=== PATIENT | female | born 1990 | race Caucasian/White ===

== ENCOUNTER 2016-06-01 17:34 | Emergency (ER) | payer SELFPAY ==
[~2016-06-01 17:34] MED LIST: CLIN300C86 PO; HYDR-971 PO; IBUP200T43 PO; SULF1TAB24 PO
[2016-06-01 18:24] LABS: BILIRUBIN,URINE NEG (NEG); CLARITY,URINE CLEAR; COLOR,URINE YELLOW; NITRITE,URINE NEG (NEG); UROBILINOGEN,URINE 0.2 mg/dL (0.2 mg/dL)
[2016-06-01 18:25] LABS: GLUCOSE,URINE NEG (NEG)
[2016-06-01 18:32] LABS: BACTERIA,URINE 0 /HPF (0-FEW); RBC,URINE OCC /HPF (0-2); SQUAMOUS EPITHELIAL CELL,UR MOD /LPF
[2016-06-01 18:47] LABS: BASO % 1 % (0-3); EOS # 0.1 x10^3/uL (0.0-0.7); EOS % 2 % (0-3); HEMATOCRIT 43.8 % (36.0-47.0); HEMOGLOBIN 14.2 g/dL (12.0-15.5); LYMPH # 1.8 x10^3/uL (1.0-4.8); LYMPH % 27 % (24-48); MEAN CORPUSCULAR HEMOGLOBIN 29 pg (25-35); MEAN CORPUSCULAR HGB CONC 33 g/dL (31-37); MEAN CORPUSCULAR VOLUME 89 fL (79-100); MONO # 0.4 x10^3/uL (0.0-1.1); MONO % 5 % (0-9); NEUT # 4.5 x10^3uL (1.8-7.7); NEUT % 65 % (31-73); PLATELET COUNT 228 x10^3/uL (140-400); RED BLOOD COUNT 4.95 x10^6/uL (3.50-5.40); RED CELL DISTRIBUTION WIDTH 13.5 % (11.5-14.5); WHITE BLOOD COUNT 6.9 x10^3/uL (4.0-11.0)
[2016-06-01 18:57] LABS: ALBUMIN 4.3 g/dL (3.4-5.0); ALBUMIN/GLOBULIN RATIO 1.2 (1.0-1.7); CALCIUM 9.2 mg/dL (8.5-10.1); CREATININE 0.7 mg/dL (0.6-1.0); GFR 99.6; POTASSIUM 3.5 mmol/L (3.5-5.1); TOTAL BILIRUBIN 0.3 mg/dL (0.2-1.0); TOTAL PROTEIN 7.9 g/dL (6.4-8.2)
[2016-06-01] MEDS ORDERED: KETOROLAC 30 MG/ML VIAL. IV ONE (19:00)
--- NOTE | 2016-06-01 19:33 | RAD ---
PROCEDURE Ultrasound pelvis complete HISTORY Bilateral flank pain radiating to the lower abdomen and radiating down legs TECHNIQUE Sonographic examination of the pelvis was performed by trans abdominal technique. The patient refused transvaginal scanning FINDINGS The uterus is retroverted limiting its evaluation but otherwise appears normal and measures 6.8 x 4.5 x 4.6 centimeters. The ovaries appear normal with normal blood flow. The right ovary measures 3.1 x 1.9 x 2.2 centimeters. Left ovary measures 4.0 x 2.9 x 3.0 centimeters. The appendix is seen and appears within normal limits. IMPRESSION Negative examination. Electronically signed by: Conner Zavala MD (Jun 01, 2016 19:32:17)
--- NOTE | 2016-06-01 20:06 | PHYS DOC ---
General Chief Complaint: BACK PAIN OR INJURY Stated Complaint: LOWER BACK/ABDOM PAIN Time Seen by MD: 18:26 Source: patient Problems: History of Present Illness Initial Comments Patient here for low back abdominal pain. Patient says this started yesterday. It worsened today. It feels like it starts in the low back and wraps around into the lower abdomen. Feels like a stretching and pulling sensation. Patient says she's never had pain like this before. There is no history of injury or trauma to the area. She's had no fever chills was felt hot. There is no runny nose or sore throat. There is no chest pain or shortness of breath. There is no nausea or vomiting with this. She does have the abdominal pain as previously described. She has no change in bowel or bladder habits. Her last period ended 2 days ago. She denies chance of . She denies any focal extremity or neurologic complaints. Patient states that she took a muscle relaxant at home that she had without help. There is no other increasing or decreasing factors. Patient says she is a history of a ruptured ovarian cyst before as well as some cervical cancer following her . She has no history of endometriosis, tube or ovary infection, or STD that she knows of. Other than as described she' s been nothing at home for this and notes no factors that increase or decrease her symptoms. Patient's past medical history is otherwise unremarkable except for the ovarian cyst as above. She smokes half-pack of cigarettes daily. She is a nonuser of ethanol. 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 Social History Smoker: less than 1 pack/day Alcohol: none Review of Systems All Other Systems: Reviewed and Negative Physical Exam General Appearance: WD/WN, mild distress, thin Ear, Nose, Throat: normal ENT inspection, normal pharynx Neck: full range of motion, supple, normal inspection Respiratory: lungs clear, normal breath sounds, no respiratory distress Cardiovascular: regular rate, rhythm, no edema Gastrointestinal: soft, no organomegaly, tenderness Back: no CVA tenderness, no vertebral tenderness, other Extremities: non-tender, normal inspection Neurologic/Psychiatric: alert, normal mood/affect, oriented x 3 Skin: normal color Lymphatic: no adenopathy Comments Generally this is a thin white female who looks older than stated age. She appears to be mildly uncomfortable with abdominal pelvic pain. Vitals are as noted. Pertinent findings on physical exam shows the chest to be clear. Cardiac mask exams unremarkable. The abdomen is soft. She is minimally tender in the lower quadrants in the suprapubic area. No masses, organomegaly, or peritoneal findings. Back shows no CVA tenderness. She is minimally tender over the bilateral upper lumbar paraspinal regions similar to her abdominal pain. Pelvic exam shows external genitalia to be within normal limits. The cervix is small and closed. There is a small amount of thick white discharge. Cultures were taken. She has exquisite cervical motion, fundal, and bilateral adnexal tenderness to exam. There is no masses. The overall exam is consistent with PID. Extremities show no rash cyanosis or edema. She is awake alert oriented and cooperative. Remainder of physical exam is clinically unremarkable. Orders, Labs, Meds Old charts note 3 prior ER visits for dental problems as well as an ER visit for soft tissue foreign body. Labs today are clinically unremarkable. Beta hCG is negative. Urinalysis shows no evidence of UTI. Pelvic ultrasound was interpreted by radiology as negative. 2030 Patient resting in the ER. She continues to complain of pain despite Toradol. I discussed with the patient that based on history and exam, most likely diagnosis of PID. She has no current or remote STD history, no history of STD contacts, and has been having sex with the same person for the last year. I discussed with her usual cause of PID is related to prior STD infection. We discussed that this time we'll go ahead and get her started on some appropriate antibiotic with a dose of Rocephin as well as doxycycline for home. In addition, she does look uncomfortable, so I'll go ahead and give her some additional pain medicine here in the ED as well as a tablet for home a prescription for Lortab as well. She says she does have a ride home. She has no local physician so I'll give her a referral list for family here. She voiced understanding need to follow up with primary care or return to the ER sooner as needed if worsening anyway. She looks mildly uncomfortable but in no acute distress, clinically stable, and okay for discharge home at this time. ENZO CAMPOS MD Jun 01, 2016 18:32
[2016-06-01] MEDS ORDERED: HYDROCODONE/APAP 10/325 TABLET. PO ONE (21:15)
[2016-06-01] MEDS ORDERED: CEFTRIAXONE IM 250 MG VIAL. IM ONE (21:15)
[2016-06-01] MEDS ORDERED: FENTANYL PF 100 MCG/2 ML VIAL. IV ONE (21:15)
[2016-06-01 21:30] VITALS: BP 121/4
[2016-06-04 15:24] LABS: CHLAMYDIA PROBE Negative (Negative)
== END 2016-06-01 21:35 | disposition home or self-care (01) ==
LOC: ER 17:34
DX: M54.5 Low back pain (principal); R10.9 Unspecified abdominal pain; F17.210 Nicotine dependence, cigarettes, uncomplicated; Z85.41 Personal history of malignant neoplasm of cervix uteri
CPT/HCPCS: 36415; 76856; 80053; 81001; 81025; 84702; 85027; 87491; 87591; 96372; 96374; 96375; 99285; J0696; J1885; J3010; Q0111

== ENCOUNTER 2016-07-06 17:37 | Emergency (ER) | payer SELFPAY ==
[~2016-07-06] VITALS: Ht 154.9 cm; Wt 59.0 kg
[2016-07-06 18:23] VITALS: BP 121/46
--- NOTE | 2016-07-06 18:24 | PHYS DOC ---
General Chief Complaint: SORE THROAT Stated Complaint: SORE THROAT Time Seen by MD: 18:22 Source: patient Exam Limitations: no limitations Problems: History of Present Illness Initial Comments Pt is 26/F 6 wks gestation follows with Dr Carver OB has had normal US taking prenatals. Currently smoking less, down from two packs per day. Sore throat x few days, not eating or drinking. Headache, chills, sweats, no n/ v/d/neck stiffness/rash. OTC meds not helping. No abdominal, bowel, bladder, or vaginal symptoms. Timing/Duration: last week Severity: severe Location: throat Prearrival Treatment: over the counter meds Modifying Factors: worse with coughing Associated Symptoms: fever, malaise, poor solids intake, sore throat Allergies: Coded Allergies: No Known Drug Allergies (Unverified , 02/12/15) Past Medical History Medical History: no pertinent history Surgical History: noncontributory Social History Smoker: cigarettes, greater than 1 pack/day Alcohol: none Drugs: none Constitutional: see HPI Ears: denies dizziness, paindenies tinnitus Nose: denies congestion, denies epistaxis, denies pain Throat: see HPIdenies neck stiffness, painful swallowingdenies difficulty with fluids Respiratory: denies cough, denies shortness of breath, denies wheezing Cardiovascular: denies chest pain, denies palpitations Gastrointestinal: denies abdominal pain, denies nausea, denies vomiting Musculoskeletal: denies joint swelling, denies neck pain Neurological: denies headache, denies numbness, denies paresthesia Physical Exam General Appearance: WD/WN, no apparent distress Eyes: bilateral eye EOMI, bilateral eye PERRL, bilateral eye normal inspection Nose: normal inspection Mouth/Throat: other (pharynx beefy red with exudate, airway patent) Neck: supple, trachea midline, lymphadenopathy (R), lymphadenopathy (L) Cardiovascular/Respiratory: normal peripheral pulses, normal breath sounds, no respiratory distress 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 Meds for symptoms will have to be OK in . Aggressive hydration stressed repeatedly as well a smoking cessation. Pt voiced understanding. Departure Time of Disposition: 18:25 Disposition: 01 HOME, SELF-CARE Diagnosis: Strep Pharyngitis, , Tobaccoism Condition: GOOD Patient Instructions: Medicines During , - Smoking, Strep Throat Additional Instructions: Please review the patient education materials given by staff. OTC medications for symptoms as allowed per handout. Aggressive hydration with gatorade, water. Tylenol as needed. The antibiotic shot given in ED should resolve your strep throat infection completely. Follow up with your doctor in 10 days for recheck. Return to ED with new or changing symptoms. ANA GORMAN DO Jul 06, 2016 18:23
[2016-07-06] MEDS ORDERED: PENICILLIN G BENZATHINE LA 1,200,000 UNIT/2 ML DISP.SYRIN. IM ONE (18:30)
== END 2016-07-06 18:50 | disposition home or self-care (01) ==
LOC: ER 17:37
DX: O26.891 Other specified pregnancy related conditions, first trimester (principal); R51 Headache; J02.0 Streptococcal pharyngitis; O99.331 Smoking (tobacco) complicating pregnancy, first trimester; Z3A.01 Less than 8 weeks gestation of pregnancy
CPT/HCPCS: 87880; 96372; 99283; J0561

== ENCOUNTER 2016-07-12 15:48 | Emergency (ER) | payer SELFPAY ==
[2016-07-12 15:48] VITALS: BP 130/69
[~2016-07-12 15:48] MED LIST changes: +CLIN300C8 PO; -CLIN300C86 PO
[2016-07-12] MEDS ORDERED: IV NORMAL SALINE 1,000ML 1,000 ML IV SCH (16:16)
--- NOTE | 2016-07-12 16:34 | PHYS DOC ---
Past History Past Medical History: No Pertinent History Past Surgical History: No Surgical History Alcohol Use: None Drug Use: None Adult General Chief Complaint Chief Complaint: VAGINAL BLEEDING HPI HPI Patient is a 26 year old female A2 approximately 7-8 weeks who presents with complaint of abdominal cramping and vaginal bleeding. Patient states her symptoms started today and have progressively worsened. Patient states that the pain is in her lower abdomen and pelvis. Patient developed bleeding shortly prior to arrival. Patient states that she had a urine test which confirmed but has not had an ultrasound to confirm intrauterine . Patient states she has an appointment with Dr. Muse [facility] in 4 days. Patient states that her pain is still present at this time and rates it as 8 out of 10. Patient has not had any bloody stools, diarrhea, dysuria, urinary frequency, or vomiting. Review of Systems Review of Systems Constitutional: Denies fever or chills [] Eyes: Denies change in visual acuity, redness, or eye pain [] HENT: Denies nasal congestion or sore throat [] Respiratory: Denies cough or shortness of breath [] Cardiovascular: Denies chest pain or edema [] GI: Lower abdominal pain, denies nausea, vomiting, bloody stools or diarrhea [] : Vaginal bleeding, pelvic cramping, denies dysuria or hematuria [] Musculoskeletal: Denies back pain or joint pain [] Integument: Denies rash or skin lesions [] Neurologic: Denies headache, focal weakness or sensory changes [] Current Medications Current Medications Current Medications Medications (Trade) Dose Ordered Sig/Marcus Start Time Stop Time Status Last Admin Dose Admin Sodium Chloride 1,000 ml @ 1,000 mls/hr Q1H 07/12/16 16:16 07/12/16 17:15 Allergies Allergies Allergies Coded Allergies Type Severity Reaction Last Updated Verified No Known Drug Allergies 02/12/15 No Physical Exam Physical Exam Constitutional: Alert, afebrile, appears in mild discomfort. [] HENT: Normocephalic, atraumatic, bilateral external ears normal, oropharynx moist, no oral exudates, nose normal. [] Eyes: PERRLA, EOMI, conjunctiva normal, no discharge. [] Neck: Normal range of motion, no tenderness, supple, no stridor. [] Cardiovascular:Heart rate regular rhythm, no murmur [] Lungs & Thorax: Bilateral breath sounds clear to auscultation [] Abdomen: Bowel sounds normal, soft, suprapubic tenderness to palpation, no masses, no pulsatile masses. [] Skin: Warm, dry, no erythema, no rash. [] Back: No tenderness, no CVA tenderness. [] Extremities: No tenderness, no cyanosis, no clubbing, ROM intact, no edema. [] Neurologic: Alert and oriented X 3, normal motor function, normal sensory function, no focal deficits noted. [] Current Patient Data Vital Signs Vital Signs Date Time Temp Pulse Resp B/P (MAP) Pulse Ox O2 Delivery O2 Flow Rate FiO2 07/12/16 15:48 98.5 95 18 100 Room Air EKG EKG Not performed [] Radiology/Procedures Radiology/Procedures Pelvic ultrasound pending at time of sign out [] Course & Med Decision Making Course & Med Decision Making Pertinent Labs and Imaging studies reviewed. (See chart for details) The patient's pelvic exam shows signs of possible bacterial infection. I explained to patient that due to suspicion for possible gonorrhea and chlamydia infection, the patient will need treatment with Rocephin and azithromycin. Patient's wet prep and ultrasound imaging are pending at this time. Care of patient was signed over to Dr. Ng at 1807. Dragon Disclaimer Dragon Disclaimer This chart was dictated in whole or in part using Voice Recognition software in a busy, high-work load, and often noisy Emergency Department environment. It may contain unintended and wholly unrecognized errors or omissions. Departure Departure: Impression: Primary Impression: Threatened miscarriage Referrals: PCP,NO (PCP) JADE BROOKS MD July 12, 2016 16:34
[2016-07-12 17:10] LABS: BASO % 0 % (0-3); EOS # 0.2 x10^3/uL (0.0-0.7); EOS % 2 % (0-3); HEMATOCRIT 39.6 % (36.0-47.0); HEMOGLOBIN 13.1 g/dL (12.0-15.5); LYMPH # 3.4 x10^3/uL (1.0-4.8); LYMPH % 23 % (24-48); MEAN CORPUSCULAR HEMOGLOBIN 29 pg (25-35); MEAN CORPUSCULAR HGB CONC 33 g/dL (31-37); MEAN CORPUSCULAR VOLUME 89 fL (79-100); MONO # 0.8 x10^3/uL (0.0-1.1); MONO % 5 % (0-9); NEUT # 10.8 x10^3uL (1.8-7.7); NEUT % 70 % (31-73); PLATELET COUNT 262 x10^3/uL (140-400); RED BLOOD COUNT 4.46 x10^6/uL (3.50-5.40); RED CELL DISTRIBUTION WIDTH 13.8 % (11.5-14.5); WHITE BLOOD COUNT 15.3 x10^3/uL (4.0-11.0)
[2016-07-12 17:18] LABS: CALCIUM 8.9 mg/dL (8.5-10.1); CREATININE 0.7 mg/dL (0.6-1.0); GFR 99.6; MAGNESIUM 2.1 mg/dL (1.8-2.4); POTASSIUM 3.6 mmol/L (3.5-5.1)
--- NOTE | 2016-07-12 18:10 | RAD ---
PROCEDURE Ob ultrasound study less than 14 weeks; transabdominal and transvaginal study HISTORY Right lower quadrant pain. Vaginal bleeding. Approximate 7 weeks . COMPARISON Pelvic sonogram dated June 01, 2016. FINDINGS Transabdominal sonography: The uterus is anteverted in position. The longitudinal and AP and transverse dimensions of the uterus are 9.7 centimeters and 5.5 centimeters and 5.6 centimeters respectively. There is an intrauterine gestational sac containing a single fetus and yolk sac. heart rate is 120 beats per minute. Transvaginal sonography will be performed. The right ovary is visualized and measures 2.1 centimeter and 1.6 centimeter and 2.5 centimeter in size and is normal. Color Doppler flow is seen within the right ovary. The left ovary measures 1.4 centimeters and 1.2 centimeters and 2.0 centimeter in size. Transvaginal sonography: [place]-rump length is 0.90 centimeters which corresponds to a gestational age of 6 weeks and 6 days with an EDC of March 01, 2017. No extra chorionic hemorrhage is seen. Uterus appears partially retroflexed by transvaginal exam. No uterine mass or fibroid is seen. The position of the placenta is indeterminate at this time due to early stage of gestation. The right ovary is normal. The left ovary contains a 2 centimeter corpus luteum cyst by transvaginal exam. Color Doppler flow is seen within the left ovary. No free fluid is evident. No adnexal mass is seen. IMPRESSION Single IUP with approximate gestational age of 6 weeks and 6 days. heart rate is 120 beats per minute. Electronically signed by: Arturo Lang MD (July 12, 2016 18:09:24)
[2016-07-12 18:38] LABS: BACTERIA,URINE 0 /HPF (0-FEW); BILIRUBIN,URINE NEG (NEG); CLARITY,URINE HAZY; COLOR,URINE STRAW; GLUCOSE,URINE NEG (NEG); NITRITE,URINE NEG (NEG); RBC,URINE OCC /HPF (0-2); SQUAMOUS EPITHELIAL CELL,UR MANY /LPF; UROBILINOGEN,URINE 0.2 mg/dL (0.2 mg/dL)
[2016-07-12 21:52] LABS: % EOS 1 % (0-5); % LYMPHS 23 % (24-48); % MONOS 7 % (0-10); % SEGS 69 % (35-66)
[2016-07-12 21:53] LABS: PLT ESTIMATE ADEQUATE (ADEQUATE)
[2016-07-13] MEDS ORDERED: HYDR-2678 PO (22:48)
[2016-07-13] MEDS ORDERED: ONDA8TAB12 PO (22:48)
[2016-07-15 17:08] LABS: CHLAMYDIA PROBE Negative (Negative)
== END 2016-07-12 18:15 | disposition left against medical advice (07) ==
LOC: ER 15:48
DX: O20.0 Threatened abortion (principal); R10.2 Pelvic and perineal pain; Z3A.01 Less than 8 weeks gestation of pregnancy
CPT/HCPCS: 36415; 76801; 76817; 80048; 81001; 81025; 83735; 85007; 85027; 86850; 86900; 86901; 87086; 87491; 87591; 96360; 96361; 99285; Q0111; J7030

== ENCOUNTER 2016-07-13 20:00 | Emergency (ER) | payer SELFPAY ==
[~2016-07-13] VITALS: Ht 154.9 cm; Wt 60.1 kg
--- NOTE | 2016-07-13 20:54 | PHYS DOC ---
Past History Past Medical History: No Pertinent History, Other Past Surgical History: Alcohol Use: None Drug Use: None Adult General Chief Complaint Chief Complaint: ABDOMINAL PAIN IN HPI HPI Patient is a pleasant 26-year-old female who is approximately 7 weeks by LMP who presents with lower abdominal pain and vaginal bleeding. She was seen here yesterday for the exact same complaint she concerned that pain with increased spotting and some mild passage of clots is an indication that she is having a miscarriage. She denies any pain with urination denies any fevers back pain lightheaded dizziness or other symptoms. She was concerned and wanted to know if she is losing her baby. She denies any trauma denies any diarrhea nausea vomiting. Since pain is worsened by movement or activity and goes away spontaneous. There is no radiation of her pain to her back he denies any history of sexually transmitted diseases. Review of Systems Review of Systems Constitutional: Denies fever or chills [] Eyes: Denies change in visual acuity, redness, or eye pain [] HENT: Denies nasal congestion or sore throat [] Respiratory: Denies cough or shortness of breath [] Cardiovascular: No additional information not addressed in HPI [] GI: Denies abdominal pain, nausea, vomiting, bloody stools or diarrhea [] : Denies dysuria or hematuria [] Musculoskeletal: Denies back pain or joint pain [] Integument: Denies rash or skin lesions [] Neurologic: Denies headache, focal weakness or sensory changes [] Endocrine: Denies polyuria or polydipsia [] Allergies Allergies Allergies Coded Allergies Type Severity Reaction Last Updated Verified No Known Drug Allergies 07/13/16 No Physical Exam Physical Exam Constitutional: Well developed, well nourished, he is also uncomfortable and crying and upset but very appropriate on exam. HENT: Normocephalic, atraumatic, bilateral external ears normal, oropharynx moist, no oral exudates, nose normal. [] Cardiovascular:Heart rate regular rhythm, no murmur [] Lungs & Thorax: Bilateral breath sounds clear to auscultation [] Abdomen: Bowel sounds normal, soft, and demonstrate no significant tenderness along her abdomen no suprapubic tenderness no masses no pulsatile lesions no guarding rebound organomegaly. Skin: Warm, dry, no erythema, no rash. [] Back: No tenderness, no CVA tenderness. [] Extremities: No tenderness, no cyanosis, no clubbing, ROM intact, no edema. [] Neurologic: Alert and oriented X 3, normal motor function, normal sensory function, no focal deficits noted. [] Psychologic: Patient's anxious and upset but very consolable and appropriate exam: Deferred by patient secondary to expected discomfort Current Patient Data Vital Signs Vital Signs Date Time Temp Pulse Resp B/P (MAP) Pulse Ox O2 Delivery O2 Flow Rate FiO2 07/13/16 20:00 98.1 117 24 98 Room Air Lab Results Laboratory Tests Test 07/13/16 21:07 07/13/16 21:30 Urine Collection Type Unknown Urine Color Yellow Urine Clarity Cloudy Urine pH 6.0 Urine Specific [place] 1.020 Urine Protein Neg (NEG-TRACE) Urine Glucose (UA) Neg mg/dL (NEG) Urine Ketones (Stick) Neg mg/dL (NEG) Urine Blood Large (NEG) Urine Nitrite Neg (NEG) Urine Bilirubin Neg (NEG) Urine Urobilinogen Dipstick 0.2 mg/dL (0.2 mg/dL) Urine Leukocyte Esterase Neg (NEG) Urine RBC >40 /HPF (0-2) Urine WBC 0 /HPF (0-4) Urine Squamous Epithelial Cells Mod /LPF Urine Bacteria 0 /HPF (0-FEW) White Blood Count 16.9 x10^3/uL (4.0-11.0) H Red Blood Count 4.25 x10^6/uL (3.50-5.40) Hemoglobin 12.5 g/dL (12.0-15.5) Hematocrit 37.2 % (36.0-47.0) Mean Corpuscular Volume 88 fL (79-100) Mean Corpuscular Hemoglobin 29 pg (25-35) Mean Corpuscular Hemoglobin Concent 34 g/dL (31-37) Red Cell Distribution Width 13.4 % (11.5-14.5) Platelet Count 253 x10^3/uL (140-400) Neutrophils (%) (Auto) 76 % (31-73) H Lymphocytes (%) (Auto) 17 % (24-48) L Monocytes (%) (Auto) 6 % (0-9) Eosinophils (%) (Auto) 1 % (0-3) Basophils (%) (Auto) 0 % (0-3) Neutrophils # (Auto) 12.8 x10^3uL (1.8-7.7) H Lymphocytes # (Auto) 2.9 x10^3/uL (1.0-4.8) Monocytes # (Auto) 1.0 x10^3/uL (0.0-1.1) Eosinophils # (Auto) 0.2 x10^3/uL (0.0-0.7) Basophils # (Auto) 0.0 x10^3/uL (0.0-0.2) Segmented Neutrophils % 79 % (35-66) H Lymphocytes % 16 % (24-48) L Monocytes % 5 % (0-10) Platelet Estimate Adequate (ADEQUATE) Maternal Serum HCG Beta Subunit 85929 mIU/mL (0-6) H EKG EKG [] Radiology/Procedures Radiology/Procedures [] Course & Med Decision Making Course & Med Decision Making Pertinent Labs and Imaging studies reviewed. (See chart for details) [] Signed PATIENT: BRENDA HEARD ACCOUNT: [id number] : 1990 LOCATION: ER AGE: 26 SEX: F EXAM STATUS: REG ER ORD. PHYSICIAN: JADE BROOKS MD REASON: vaginal bleeding, approximate 7 weeks PROCEDURE: OB <14 WKS W/TV PROCEDURE Ob ultrasound study less than 14 weeks; transabdominal and transvaginal study HISTORY Right lower quadrant pain. Vaginal bleeding. Approximate 7 weeks . COMPARISON Pelvic sonogram dated June 01, 2016. FINDINGS Transabdominal sonography: The uterus is anteverted in position. The longitudinal and AP and transverse dimensions of the uterus are 9.7 centimeters and 5.5 centimeters and 5.6 centimeters respectively. There is an intrauterine gestational sac containing a single fetus and yolk sac. heart rate is 120 beats per minute. Transvaginal sonography will be performed. The right ovary is visualized and measures 2.1 centimeter and 1.6 centimeter and 2.5 centimeter in size and is normal. Color Doppler flow is seen within the right ovary. The left ovary measures 1.4 centimeters and 1.2 centimeters and 2.0 centimeter in size. Transvaginal sonography: [place]-rump length is 0.90 centimeters which corresponds to a gestational age of 6 weeks and 6 days with an EDC of March 01, 2017. No extra chorionic hemorrhage is seen. Uterus appears partially retroflexed by transvaginal exam. No uterine mass or fibroid is seen. The position of the placenta is indeterminate at this time due to early stage of gestation. The right ovary is normal. The left ovary contains a 2 centimeter corpus luteum cyst by transvaginal exam. Color Doppler flow is seen within the left ovary. No free fluid is evident. No adnexal mass is seen. IMPRESSION Single IUP with approximate gestational age of 6 weeks and 6 days. heart rate is 120 beats per minute. Electronically signed by: Marlen Lang MD (July 12, 2016 18:09:24) DICTATED AND SIGNED BY: MARLEN LANG MD DATE: 07/12/161808 CC: JADE BROOKS MD; PCP,NO ~ Ultrasound results from 07/12/16 reviewed by me and with the patient. Plan is to repeat Quant check a repeat CBC as well to ensure the patient is not hemorrhaging significantly. She denies any hemodynamic instability or dizziness with standing. Her H&H yesterday was 13 and 39 platelet count of 262. He was given pain medications and nausea medications to help with her symptoms as we wait for lab results. His labs were reviewed patient was informed H&H was stable at 12.7 and 38 which is close to her prior evaluation measurement. Patient quantitative hCG is 24, 000 which is not comparable to Quant does not taking yesterday. She will need to follow up with her primary care doctor in 48 hours for repeat Quant. Patient is feeling markedly more comfortable after fluids and Dilaudid IV she was given precautions. Ectopic again limited evaluation given the fact the patient did not want pelvic exam completed. She has had no spotting or bleeding here in the emergency department of any significance. Impression: Threatened miscarriage Disposition: Follow-up with [facility] in 48 hours for repeat Quant. Precautions given given pain medication to "oral Lortab and Zofran asked to return for any increasing pain despite treatment bleeding greater than 1 pad per hour for 8 hours or lightheaded dizziness associated increasing abdominal pain or if she has new questions or concerns. Dragon Disclaimer Dragon Disclaimer This chart was dictated in whole or in part using Voice Recognition software in a busy, high-work load, and often noisy Emergency Department environment. It may contain unintended and wholly unrecognized errors or omissions. Departure Departure: Referrals: PCP,ANTONIA (PCP) JOSELYN TERAN MD July 13, 2016 20:54
[2016-07-13] MEDS ORDERED: ONDANSETRON PF 4 MG/2 ML VIAL. IV ONE (21:00)
[2016-07-13] MEDS ORDERED: HYDROmorphone PF 1 MG/ML DISP.SYRIN IV ONE (21:00)
[2016-07-13 21:50] LABS: BILIRUBIN,URINE NEG (NEG); CLARITY,URINE CLOUDY; COLOR,URINE YELLOW; GLUCOSE,URINE NEG (NEG)
[2016-07-13 21:51] LABS: BACTERIA,URINE 0 /HPF (0-FEW); NITRITE,URINE NEG (NEG); RBC,URINE >40 /HPF (0-2); UROBILINOGEN,URINE 0.2 mg/dL (0.2 mg/dL); WBC,URINE 0 /HPF (0-4)
[2016-07-13 21:52] LABS: SQUAMOUS EPITHELIAL CELL,UR MOD /LPF
[2016-07-13 21:53] LABS: BASO % 0 % (0-3); EOS # 0.2 x10^3/uL (0.0-0.7); EOS % 1 % (0-3); HEMATOCRIT 37.2 % (36.0-47.0); HEMOGLOBIN 12.5 g/dL (12.0-15.5); LYMPH # 2.9 x10^3/uL (1.0-4.8); LYMPH % 17 % (24-48); MEAN CORPUSCULAR HEMOGLOBIN 29 pg (25-35); MEAN CORPUSCULAR HGB CONC 34 g/dL (31-37); MEAN CORPUSCULAR VOLUME 88 fL (79-100); MONO % 6 % (0-9); NEUT # 12.8 x10^3uL (1.8-7.7); NEUT % 76 % (31-73); PLATELET COUNT 253 x10^3/uL (140-400); RED BLOOD COUNT 4.25 x10^6/uL (3.50-5.40); RED CELL DISTRIBUTION WIDTH 13.4 % (11.5-14.5); WHITE BLOOD COUNT 16.9 x10^3/uL (4.0-11.0)
[2016-07-13 22:33] LABS: % LYMPHS 16 % (24-48); % MONOS 5 % (0-10); % SEGS 79 % (35-66)
[2016-07-13 22:37] LABS: PLT ESTIMATE ADEQUATE (ADEQUATE)
[2016-07-13 22:42] VITALS: BP 123/68
[2016-07-13] MEDS ORDERED: ONDA8TAB12 PO (22:48)
[2016-07-13] MEDS ORDERED: HYDR-2678 PO (22:48)
[2016-07-14] MEDS ORDERED: ONDANSETRON PF 4 MG/2 ML VIAL. IV ONE (02:30)
[2016-07-14] MEDS ORDERED: HYDROmorphone PF 1 MG/ML DISP.SYRIN IV ONE (02:30)
== END 2016-07-13 23:25 | disposition home or self-care (01) ==
LOC: ER 20:00
DX: O20.0 Threatened abortion (principal); R10.31 Right lower quadrant pain; Z3A.01 Less than 8 weeks gestation of pregnancy
CPT/HCPCS: 36415; 81001; 84702; 85007; 85027; 96374; 96375; 96376; 99285; J1170; J2405; 99284-25

== ENCOUNTER 2016-07-14 12:33 | Emergency (ER) | payer SELFPAY ==
[~2016-07-14] VITALS: Ht 154.9 cm; Wt 60.1 kg
[~2016-07-14 12:33] MED LIST changes: +HYDR-2678 PO; +ONDA8TAB12 PO
[2016-07-14 12:40] VITALS: BP 123/68
[2016-07-14] MEDS ORDERED: IV NORMAL SALINE 1,000ML 1,000 ML IV ONE (13:15)
[2016-07-14 13:35] LABS: BASO % 0 % (0-3); EOS % 0 % (0-3); HEMATOCRIT 43.8 % (36.0-47.0); HEMOGLOBIN 14.3 g/dL (12.0-15.5); LYMPH # 1.3 x10^3/uL (1.0-4.8); LYMPH % 7 % (24-48); MEAN CORPUSCULAR HEMOGLOBIN 29 pg (25-35); MEAN CORPUSCULAR HGB CONC 33 g/dL (31-37); MEAN CORPUSCULAR VOLUME 89 fL (79-100); MONO # 0.6 x10^3/uL (0.0-1.1); MONO % 4 % (0-9); NEUT # 15.5 x10^3uL (1.8-7.7); NEUT % 89 % (31-73); PLATELET COUNT 286 x10^3/uL (140-400); RED BLOOD COUNT 4.94 x10^6/uL (3.50-5.40); RED CELL DISTRIBUTION WIDTH 13.6 % (11.5-14.5); WHITE BLOOD COUNT 17.5 x10^3/uL (4.0-11.0)
[2016-07-14 13:47] LABS: ALBUMIN 4.2 g/dL (3.4-5.0); ALBUMIN/GLOBULIN RATIO 0.9 (1.0-1.7); CALCIUM 9.7 mg/dL (8.5-10.1); CREATININE 0.7 mg/dL (0.6-1.0); GFR 99.6; POTASSIUM 3.8 mmol/L (3.5-5.1); TOTAL BILIRUBIN 0.5 mg/dL (0.2-1.0); TOTAL PROTEIN 8.8 g/dL (6.4-8.2)
[2016-07-14 14:01] LABS: % BANDS 4 % (0-9); % LYMPHS 11 % (24-48); % MONOS 2 % (0-10); % SEGS 83 % (35-66)
[2016-07-14 14:02] LABS: PLT ESTIMATE ADEQUATE (ADEQUATE)
[2016-07-14 14:36] LABS: AMPHETAMINE/METHAMPHETAMINE NEG (NEG); BARBITURATES NEG (NEG); BENZODIAZEPINES NEG (NEG); CANNABINOIDS NEG (NEG); COCAINE NEG (NEG); METHADONE NEG (NEG); OPIATES POS (NEG); PHENCYCLIDINE NEG (NEG)
--- NOTE | 2016-07-14 14:36 | PHYS DOC ---
Past History Past Medical History: No Pertinent History, Other Past Surgical History: Alcohol Use: None Drug Use: None Adult General Chief Complaint Chief Complaint: WITHDRAWL HPI HPI This is a 26-year-old female whose been seen in the ER multiple times in the last several days for threatened miscarriage and abdominal pain. Patient had a serum quantitative value drawn yesterday and given several doses of Dilaudid and ultimately discharged to follow with her OB in the next 48 hours. She now presents for continued pain and some clot passage as well as concern for opiate abuse and withdrawal. She denies any fever or chills. She denies any lightheadedness or dizziness. Patient is fully alert and oriented at this time. She is in mild distress. She is afebrile. She states this is her sixth . She has had 3 full term deliveries with 2 deliveries and 2 spontaneous miscarriages. She states she has been struggling with opiate abuse for the past year. She now states she needs help. She denies any suicidal or homicidal ideation. She localizes her lower abdominal pain to the suprapubic region. An ultrasound performed 2 days prior showed a viable IUP with a heart rate of 120 bpm. Review of Systems Review of Systems Constitutional: Denies fever or chills [] Eyes: Denies change in visual acuity, redness, or eye pain [] HENT: Denies nasal congestion or sore throat [] Respiratory: Denies cough or shortness of breath [] Cardiovascular: No additional information not addressed in HPI [] GI: Has abdominal pain, denies nausea, denies vomiting, denies bloody stools or diarrhea [] : Denies dysuria or hematuria [] Musculoskeletal: Denies back pain or joint pain [] Integument: Denies rash or skin lesions [] Neurologic: Denies headache, focal weakness or sensory changes [] Endocrine: Denies polyuria or polydipsia [] Current Medications Current Medications Current Medications Medications (Trade) Dose Ordered Sig/Marcus Start Time Stop Time Status Last Admin Dose Admin Acetaminophen (Tylenol) 650 mg 1X ONCE 07/14/16 14:15 07/14/16 14:16 UNV Sodium Chloride 1,000 ml @ 1,000 mls/hr 1X ONCE 07/14/16 13:15 07/14/16 14:14 DC 07/14/16 13:15 1,000 MLS/HR Allergies Allergies Allergies Coded Allergies Type Severity Reaction Last Updated Verified No Known Drug Allergies 07/13/16 No Physical Exam Physical Exam Constitutional: Well developed, well nourished, mild distress, non-toxic appearance. [] HENT: Normocephalic, atraumatic, bilateral external ears normal, oropharynx moist, no oral exudates, nose normal. [] Eyes: PERRLA, EOMI, conjunctiva normal, no discharge. [] Neck: Normal range of motion, no tenderness, supple, no stridor. [] Cardiovascular:Heart rate tachycardic with regular rhythm, no murmur [] Lungs & Thorax: Bilateral breath sounds clear to auscultation [] Abdomen: Bowel sounds normal, soft, moderate suprapubic tenderness, no masses, no pulsatile masses. [] Skin: Warm, dry, no erythema, no rash. [] Back: No tenderness, no CVA tenderness. [] Extremities: No tenderness, no cyanosis, no clubbing, ROM intact, no edema. [] Neurologic: Alert and oriented X 3, normal motor function, normal sensory function, no focal deficits noted. [] Psychologic: Affect normal, judgement normal, mood normal. [] Current Patient Data Lab Results Laboratory Tests Test 07/14/16 13:17 White Blood Count 17.5 x10^3/uL (4.0-11.0) H Red Blood Count 4.94 x10^6/uL (3.50-5.40) Hemoglobin 14.3 g/dL (12.0-15.5) Hematocrit 43.8 % (36.0-47.0) Mean Corpuscular Volume 89 fL (79-100) Mean Corpuscular Hemoglobin 29 pg (25-35) Mean Corpuscular Hemoglobin Concent 33 g/dL (31-37) Red Cell Distribution Width 13.6 % (11.5-14.5) Platelet Count 286 x10^3/uL (140-400) Neutrophils (%) (Auto) 89 % (31-73) H Lymphocytes (%) (Auto) 7 % (24-48) L Monocytes (%) (Auto) 4 % (0-9) Eosinophils (%) (Auto) 0 % (0-3) Basophils (%) (Auto) 0 % (0-3) Neutrophils # (Auto) 15.5 x10^3uL (1.8-7.7) H Lymphocytes # (Auto) 1.3 x10^3/uL (1.0-4.8) Monocytes # (Auto) 0.6 x10^3/uL (0.0-1.1) Eosinophils # (Auto) 0.0 x10^3/uL (0.0-0.7) Basophils # (Auto) 0.0 x10^3/uL (0.0-0.2) Segmented Neutrophils % 83 % (35-66) H Band Neutrophils % 4 % (0-9) Lymphocytes % 11 % (24-48) L Monocytes % 2 % (0-10) Platelet Estimate Adequate (ADEQUATE) Maternal Serum HCG Beta Subunit 9174 mIU/mL (0-6) H Sodium Level 139 mmol/L (136-145) Potassium Level 3.8 mmol/L (3.5-5.1) Chloride Level 101 mmol/L (98-107) Carbon Dioxide Level 28 mmol/L (21-32) Anion Gap 10 (6-14) Blood Urea Nitrogen 7 mg/dL (7-20) Creatinine 0.7 mg/dL (0.6-1.0) Estimated GFR (Cockcroft-Gault) 99.6 BUN/Creatinine Ratio 10 (6-20) Glucose Level 85 mg/dL (70-99) Calcium Level 9.7 mg/dL (8.5-10.1) Total Bilirubin 0.5 mg/dL (0.2-1.0) Aspartate Amino Transferase (AST) 6 U/L (15-37) L Alanine Aminotransferase (ALT) 28 U/L (14-59) Alkaline Phosphatase 156 U/L (46-116) H Total Protein 8.8 g/dL (6.4-8.2) H Albumin 4.2 g/dL (3.4-5.0) Albumin/Globulin Ratio 0.9 (1.0-1.7) L EKG EKG [] Radiology/Procedures Radiology/Procedures [] Course & Med Decision Making Course & Med Decision Making Pertinent Labs and Imaging studies reviewed. (See chart for details) 26-year-old female who has history of opiate abuse and is likely actively miscarrying department will be transferred to [facility] for further evaluation of her opiate withdrawal type symptoms of an active miscarriage. Her laboratory workup was remarkable for a serum quantitative value of 9000 approximately which has trended down from 4000 yesterday. This is consistent with an inevitable miscarriage. Her urine toxicology panel is positive for opiates. The rest of her laboratory workup is fairly unremarkable. Patient was given an IV fluid bolus and a meal while in the department. She still states she feels anxious and is mildly tachycardic. I discussed with the patient that I will not be giving her any narcotics at this time but that I will be transferring her to [facility] for further evaluation regarding her opiate abuse and miscarriage symptoms. I discussed her case with the admitting hospitalist, Dr. Moreno, who agreed to accept the patient for further evaluation and treatment. She was transferred without incident. Dragon Disclaimer Dragon Disclaimer This chart was dictated in whole or in part using Voice Recognition software in a busy, high-work load, and often noisy Emergency Department environment. It may contain unintended and wholly unrecognized errors or omissions. Departure Departure: Impression: Primary Impression: Inevitable Additional Impression: Opiate withdrawal Disposition: 05 XFER OTHER Condition: STABLE Referrals: PCP,NO (PCP) Problem Qualifiers DEANGELO GARCIA DO July 14, 2016 14:36
[2016-07-14] MEDS ORDERED: ACETAMINOPHEN 325 MG TABLET PO ONE (14:45)
== END 2016-07-14 15:15 | disposition short-term general hospital (02) ==
LOC: ER 12:33
DX: O03.9 Complete or unspecified spontaneous abortion without complication (principal); F11.23 Opioid dependence with withdrawal; Z3A.01 Less than 8 weeks gestation of pregnancy
CPT/HCPCS: 36415; 80053; 80305; 84702; 85007; 85027; 96360; 96361; G0481; 99285-25; J7030

== ENCOUNTER 2017-03-30 14:32 | Emergency (ER) | payer SELFPAY ==
[~2017-03-30] VITALS: Ht 154.9 cm; Wt 60.1 kg
[~2017-03-30 14:32] MED LIST changes: -IBUP200T43 PO; +IBUP200T44 PO
--- NOTE | 2017-03-30 15:46 | PHYS DOC ---
General Chief Complaint: ANXIETY/PANIC ATTACK Stated Complaint: HEART PALPITATIONS/ANXIETY Time Seen by MD: 15:21 Source: patient Exam Limitations: no limitations Problems: History of Present Illness Initial Comments Patient is a 26-year-old female who comes to the ED complaining of panic attack. Patient states that she has history of anxiety and panic attacks, states that she's had increased stressors recently as today really getting to her. She says that she hasn't been able to eat or sleep and that she's felt like her heart was racing and shortness of breath denies any actual chest pain. States symptoms are identical to prior panic attacks denies any fever chills sweats or myalgias. Denies suicidal or homicidal ideation and on arrival Ativan 1 mg given. Timing/Duration: other Severity: severe Modifying Factors: improves with medication Associated Symptoms: other Allergies: Coded Allergies: No Known Drug Allergies (Unverified , 07/13/16) Past Medical History Medical History: other (anxiety) Surgical History: noncontributory Social History Smoker: cigarettes Alcohol: none Drugs: none Review of Systems Constitutional: denies chills, denies diaphoresis, denies fever, denies malaise Respiratory: denies cough, shortness of breath, denies wheezing Cardiovascular: denies chest pain, palpitations, denies syncope Gastrointestinal: denies abdominal pain, denies nausea, denies vomiting Psychiatric/Neurological: see HPI Hematologic/Lymphatic: denies blood clots, denies easy bleeding, denies easy bruising Physical Exam General Appearance: WD/WN, severe distress Eyes: bilateral eye normal inspection, bilateral eye PERRL, bilateral eye EOMI Ear, Nose, Throat: hearing grossly normal, normal ENT inspection, normal pharynx Neck: non-tender, supple Respiratory: normal breath sounds, no respiratory distress Gastrointestinal: non tender, soft Back: no CVA tenderness, no vertebral tenderness Extremities: non-tender, normal inspection Neurologic/Psychiatric: 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 I discussed the many red flags associated with possible drug-seeking behavior. I advised her that I would give her the benefit of the doubt today and give her 1 Ativan 1 mg by mouth and that she [facility] for walk-in hours. I advised her to show up 20 minutes early to ensure she could be seen and she was agreeable. She understands that further pain and anxiety medications will be given only an emergent condition moving forward. Departure Time of Disposition: 15:43 Disposition: 01 HOME, SELF-CARE Diagnosis: anxiety and panic attacks Condition: GOOD Patient Instructions: Anxiety and Panic Attacks, [id number] Additional Instructions: As discussed, you must [facility]-up with the [facility] tomorrow morning for walk-in hour appointment. ED staff will provide you phone number and address as well as there is this hours, it is strongly advised that he show up 20 minutes early to ensure that your able to be seen. Only emergent pain and anxiety complaints will be treated with controlled substances moving forward. As also advised that you establish with a primary care physician this week, once again ED staff can provide you a list of physicians to have walk-in appointments available throughout the week. Follow-up with a primary care doctor this week in the [facility] tomorrow. Return to ED with new emergent conditions. ANA GORMAN DO Mar 30, 2017 15:46
[2017-03-30 15:54] VITALS: BP 165/82
[2017-03-30] MEDS ORDERED: LORazepam 1 MG TABLET PO ONE (16:00)
== END 2017-03-30 15:59 | disposition home or self-care (01) ==
LOC: ER 14:32
DX: F41.0 Panic disorder [episodic paroxysmal anxiety] (principal); F17.210 Nicotine dependence, cigarettes, uncomplicated
CPT/HCPCS: 99283; 99284

== ENCOUNTER 2017-10-21 14:08 | Emergency (ER) | payer SELFPAY ==
[~2017-10-21] VITALS: Ht 154.9 cm; Wt 65.8 kg
[2017-10-21] MEDS ORDERED: KETOROLAC 60 MG/2 ML VIAL. IM ONE (14:45)
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
[2017-10-21 15:23] VITALS: BP 147/85
[2017-10-21] MEDS ORDERED: PENI500T PO (15:31)
[2017-10-21] MEDS ORDERED: HYDR-971 PO (15:31)
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
== END 2017-10-21 15:34 | disposition home or self-care (01) ==
LOC: ER 14:08
DX: K02.9 Dental caries, unspecified (principal); F41.9 Anxiety disorder, unspecified; F17.210 Nicotine dependence, cigarettes, uncomplicated; Z71.6 Tobacco abuse counseling; Y08.89XA Assault by other specified means, initial encounter; Y93.89 Activity, other specified; Y92.89 Other specified places as the place of occurrence of the external cause; Y99.8 Other external cause status
CPT/HCPCS: 70110; 96372; 99284; J1885

== ENCOUNTER 2018-01-18 15:49 | Emergency (ER) | payer OTHER ==
[~2018-01-18] VITALS: Ht 154.9 cm; Wt 69.4 kg
[~2018-01-18 15:49] MED LIST changes: +PENI500T PO
--- NOTE | 2018-01-18 16:56 | PHYS DOC ---
Past History Past Medical History: Anxiety, Other Past Surgical History: No Surgical History, Smoking: Cigarettes Alcohol Use: None Drug Use: None Adult General Chief Complaint Chief Complaint: Palpitations HPI HPI 27-year-old female who is a former heroin addict presents with palpitations and concern for withdrawal. The patient has been clean from heroin since February of last year. She has been on methadone until Friday. She decided to stop her methadone (42mg) cold turkey on Friday. This is day 4 without any opiates. Today she has been having intermittent palpitations which she describes as a rapid heartbeat feeling, jitteriness, anxiety, episodes of sweaty skin. She knows that these are signs of withdrawal. She is here to see if there are any adjunctive medications that are nonaddictive that we could give her to help her with the symptoms. She would like to continue on and not take any additional doses of methadone. She does not want to be placed on any other addictive medications. Review of Systems Review of Systems Constitutional: Denies fever or chills [] Eyes: Denies change in visual acuity, redness, or eye pain [] HENT: Denies nasal congestion or sore throat [] Respiratory: Denies cough or shortness of breath [] Cardiovascular: No additional information not addressed in HPI [] GI: Nausea without vomiting, bloody stools or diarrhea [] : Denies dysuria or hematuria [] Musculoskeletal: Low back pain[] Integument: Denies rash or skin lesions [] Neurologic: Anxiety. Denies headache, focal weakness or sensory changes [] Endocrine: Denies polyuria or polydipsia [] All other systems were reviewed and found to be within normal limits, except as documented in this note. Allergies Allergies Allergies Coded Allergies Type Severity Reaction Last Updated Verified No Known Drug Allergies 07/13/16 No Physical Exam Physical Exam Constitutional: Well developed, well nourished, no acute distress, non-toxic appearance. [] HENT: Normocephalic, atraumatic, bilateral external ears normal, oropharynx moist, no oral exudates, nose normal. [] Eyes: PERRLA, EOMI, conjunctiva normal, no discharge. [] Neck: Normal range of motion, no tenderness, supple, no stridor. [] Cardiovascular:Heart rate regular rhythm, no murmur [] Lungs & Thorax: Bilateral breath sounds clear to auscultation [] Abdomen: Bowel sounds normal, soft, no tenderness, no masses, no pulsatile masses. [] Skin: Warm, slightly moist, no erythema, no rash. [] Back: No tenderness, no CVA tenderness. [] Extremities: No tenderness, no cyanosis, no clubbing, ROM intact, no edema. [] Neurologic: Alert and oriented X 3, normal motor function, normal sensory function, no focal deficits noted. [] Psychologic: Affect anxious, judgement normal, mood normal. [] Current Patient Data Vital Signs Vital Signs Date Time Temp Pulse Resp B/P (MAP) Pulse Ox O2 Delivery O2 Flow Rate FiO2 01/18/18 16:07 98.3 80 18 98 Room Air EKG EKG Sinus rhythm, rate 75, normal axis, no ST elevations or depressions[] Radiology/Procedures Radiology/Procedures [] Impressions: EXAM: CHEST 1 VIEW History: Shortness of breath COMPARISON: 02/09/2012 TECHNIQUE: Single portable radiograph of the chest FINDINGS: The cardiac silhouette is unremarkable. The lungs are clear bilaterally. The costophrenic sulci are clear and well demarcated. IMPRESSION: No radiographic evidence of an acute cardiopulmonary process. Electronically signed by: Reynold Gray MD (01/18/2018 5:03 PM) [facility] DICTATED AND SIGNED BY: REYNOLD GRAY MD DATE: 01/18/181701 CC: BENSON ARCE DO; PCPANTONIA Course & Med Decision Making Course & Med Decision Making Pertinent Labs and Imaging studies reviewed. (See chart for details) Patient's labs are unremarkable. Her EKG is unremarkable. Chest x-rays unremarkable. Urinalysis is unremarkable. Her urine drug screen is negative. I gave the patient 0.1 clonidine and 25 mg of hydroxyzine. She states this hasn't improved her withdrawal symptoms significantly. The patient feels that these medications are helping enough that she will not need to have further doses of methadone. She is happy were able to help her. I encouraged her to continue her sobriety and to avoid drug use. She is stable for discharge at this time. [] Dragon Disclaimer Dragon Disclaimer This electronic medical record was generated, in whole or in part, using a voice recognition dictation system. Departure Departure: Referrals: PCPANTONIA (PCP) Scripts Hydroxyzine Hcl (HYDROXYZINE HCL) 25 Mg Tablet 1 TAB PO TID PRN for ANXIETY / AGITATION, #30 TAB Prov: BENSON ARCE DO 01/18/18 Clonidine Hcl (CLONIDINE HCL) 0.1 Mg Tablet 1 TAB PO BID PRN for WITHDRAWAL IRRITABILITY, #20 TAB 0 Refills Prov: BENSON ARCE DO 01/18/18 BENSON ARCE DO Jan 18, 2018 16:56
--- NOTE | 2018-01-18 17:06 | RAD ---
EXAM: CHEST 1 VIEW History: Shortness of breath COMPARISON: 02/09/2012 TECHNIQUE: Single portable radiograph of the chest FINDINGS: The cardiac silhouette is unremarkable. The lungs are clear bilaterally. The costophrenic sulci are clear and well demarcated. IMPRESSION: No radiographic evidence of an acute cardiopulmonary process. Electronically signed by: Reynold Gray MD (01/18/2018 5:03 PM) [facility]
[2018-01-18 17:14] LABS: BASO # 0.1 x10^3/uL (0.0-0.2); BASO % 1 % (0-3); EOS % 0 % (0-3); HEMATOCRIT 44.1 % (36.0-47.0); HEMOGLOBIN 14.4 g/dL (12.0-15.5); LYMPH # 1.8 x10^3/uL (1.0-4.8); LYMPH % 14 % (24-48); MEAN CORPUSCULAR HEMOGLOBIN 28 pg (25-35); MEAN CORPUSCULAR HGB CONC 33 g/dL (31-37); MEAN CORPUSCULAR VOLUME 86 fL (79-100); MONO # 0.7 x10^3/uL (0.0-1.1); MONO % 5 % (0-9); NEUT # 10.8 x10^3uL (1.8-7.7); NEUT % 81 % (31-73); PLATELET COUNT 338 x10^3/uL (140-400); RED BLOOD COUNT 5.11 x10^6/uL (3.50-5.40); RED CELL DISTRIBUTION WIDTH 13.3 % (11.5-14.5); WHITE BLOOD COUNT 13.4 x10^3/uL (4.0-11.0)
--- NOTE | 2018-01-18 17:27 | EKG ---
[address] [address] Test Date: 2018-01-18 Test Time: 16:12:15 Pat Name: BRENDA SEVILLA Department: Room: Gender: F Behavioral Therapy Coordinator: : 1990 Requested By: BENSON ARCE Order Number: [id number] Reading MD: Branden Arriaga MD Measurements Intervals [place] Rate: 75 P: 33 TN: 140 QRS: 36 QRSD: 80 T: 39 QT: 346 QTc: 389 Interpretive Statements SINUS RHYTHM Electronically Signed On 01-20-2018 10:24:34 FILTER HELPER by Branden Arriaga MD
[2018-01-18] MEDS ORDERED: hydrOXYzine HCL 25 MG TABLET PO ONE (17:30)
[2018-01-18] MEDS ORDERED: KETOROLAC 30 MG/ML VIAL. IV ONE (17:30)
[2018-01-18] MEDS ORDERED: cloNIDine HCL 0.1 MG TABLET PO ONE (17:30)
[2018-01-18 17:31] LABS: ALBUMIN 4.3 g/dL (3.4-5.0); ALBUMIN/GLOBULIN RATIO 1.1 (1.0-1.7); ALK PHOS 138 U/L (46-116); ALT (SGPT) 18 U/L (14-59); ANION GAP 9 (6-14); AST (SGOT) < 5 U/L (15-37); BLOOD UREA NITROGEN 11 mg/dL (7-20); BUN/CREATININE RATIO 16 (6-20); CALCIUM 9.7 mg/dL (8.5-10.1); CARBON DIOXIDE 28 mmol/L (21-32); CHLORIDE 101 mmol/L (98-107); CREATININE 0.7 mg/dL (0.6-1.0); GFR 98.9; GLUCOSE 89 mg/dL (70-99); POTASSIUM 3.9 mmol/L (3.5-5.1); SODIUM 138 mmol/L (136-145); TOTAL BILIRUBIN 0.3 mg/dL (0.2-1.0); TOTAL PROTEIN 8.3 g/dL (6.4-8.2)
[2018-01-18 17:43] LABS: BACTERIA,URINE FEW /HPF (0-FEW); BILIRUBIN,URINE NEG (NEG); CLARITY,URINE CLOUDY; COLOR,URINE YELLOW; GLUCOSE,URINE NEG (NEG); NITRITE,URINE NEG (NEG); RBC,URINE OCC /HPF (0-2); SQUAMOUS EPITHELIAL CELL,UR OCC /LPF; UROBILINOGEN,URINE 0.2 mg/dL (0.2 mg/dL); WBC,URINE OCC /HPF (0-4)
[2018-01-18 17:44] LABS: AMORPHOUS SEDIMENT,UR PRESENT /HPF; BARBITURATES NEG (NEG); BENZODIAZEPINES NEG (NEG); CANNABINOIDS NEG (NEG); COCAINE NEG (NEG); METHADONE NEG (NEG); OPIATES NEG (NEG); PHENCYCLIDINE NEG (NEG)
[2018-01-18 17:45] LABS: AMPHETAMINE/METHAMPHETAMINE NEG (NEG)
[2018-01-18 18:10] VITALS: BP 130/85
[2018-01-18] MEDS ORDERED: CLON0.1T PO (18:18)
[2018-01-18] MEDS ORDERED: HYDR25TA PO (18:18)
== END 2018-01-18 18:30 | disposition home or self-care (01) ==
LOC: ER 15:49
DX: F11.23 Opioid dependence with withdrawal (principal); F41.9 Anxiety disorder, unspecified; F17.210 Nicotine dependence, cigarettes, uncomplicated
CPT/HCPCS: 36415; 71045; 80053; 80307; 81001; 84484; 85025; 93005; 96374; 99285; J1885

== ENCOUNTER 2018-03-14 10:56 | Emergency (ER) | payer SELFPAY ==
[~2018-03-14] VITALS: Ht 154.9 cm; Wt 70.6 kg
[2018-03-14 10:56] VITALS: BP 154/93
[~2018-03-14 10:56] MED LIST changes: +CLON0.1T PO; +HYDR-3165 PO; -HYDR-971 PO; +HYDR25TA PO
[2018-03-14 11:48] LABS: BILIRUBIN,URINE NEG (NEG); CLARITY,URINE CLOUDY; COLOR,URINE YELLOW; GLUCOSE,URINE NEG (NEG); NITRITE,URINE NEG (NEG); UROBILINOGEN,URINE 0.2 mg/dL (0.2 mg/dL)
[2018-03-14 11:49] LABS: BACTERIA,URINE MOD /HPF (0-FEW); SQUAMOUS EPITHELIAL CELL,UR MANY /LPF
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
[2018-03-14] MEDS ORDERED: cefTRIAXone IM 250 MG VIAL IM ONE (12:45)
[2018-03-14] MEDS ORDERED: AZITHROMYCIN 250 MG TABLET. PO ONE (12:45)
[2018-03-14 12:57] LABS: U PREG PATIENT NEGATIVE (NEG)
[2018-03-14] MEDS ORDERED: Percogesic PO (13:21)
[2018-03-14] MEDS ORDERED: NYST15OI2 TP (13:21)
[2018-03-14] MEDS ORDERED: METR500T PO (13:21)
[2018-03-15] MEDS ORDERED: MAGN296S9 PO (15:25)
[2018-03-16 13:13] LABS: CHLAMYDIA PROBE Negative (Negative)
== END 2018-03-14 13:12 | disposition home or self-care (01) ==
LOC: ER 10:56
DX: N76.0 Acute vaginitis (principal); B96.89 Other specified bacterial agents as the cause of diseases classified elsewhere; R23.4 Changes in skin texture; N64.4 Mastodynia; K62.89 Other specified diseases of anus and rectum; F17.210 Nicotine dependence, cigarettes, uncomplicated; Z71.6 Tobacco abuse counseling
CPT/HCPCS: 36415; 81001; 81025; 87491; 87591; 96372; 99283; J0456; J0696; Q0111; 87086

== ENCOUNTER 2018-03-15 13:05 | Emergency (ER) | payer SELFPAY ==
[~2018-03-15] VITALS: Ht 154.9 cm; Wt 65.8 kg
[2018-03-15 13:05] VITALS: BP 139/85
[~2018-03-15 13:05] MED LIST changes: +METR500T PO; +NYST15OI2 TP; +Percogesic PO
[2018-03-15] MEDS ORDERED: IV NORMAL SALINE 1,000ML 1,000 ML IV SCH (13:30)
[2018-03-15] MEDS ORDERED: ONDANSETRON PF 4 MG/2 ML VIAL. IV ONE (13:45)
[2018-03-15] MEDS ORDERED: KETOROLAC 30 MG/ML VIAL. IV ONE (13:45)
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
[2018-03-15 14:25] LABS: AMPHETAMINE/METHAMPHETAMINE NEG (NEG); BARBITURATES NEG (NEG); BENZODIAZEPINES NEG (NEG); CANNABINOIDS POS (NEG); COCAINE POS (NEG); METHADONE NEG (NEG); OPIATES NEG (NEG); PHENCYCLIDINE NEG (NEG)
[2018-03-15 14:26] LABS: BASO % 0 % (0-3); EOS # 0.2 x10^3/uL (0.0-0.7); EOS % 2 % (0-3); HEMATOCRIT 42.6 % (36.0-47.0); HEMOGLOBIN 13.9 g/dL (12.0-15.5); LYMPH # 2.2 x10^3/uL (1.0-4.8); LYMPH % 18 % (24-48); MEAN CORPUSCULAR HEMOGLOBIN 29 pg (25-35); MEAN CORPUSCULAR HGB CONC 33 g/dL (31-37); MEAN CORPUSCULAR VOLUME 88 fL (79-100); MONO # 0.7 x10^3/uL (0.0-1.1); MONO % 6 % (0-9); NEUT # 8.9 x10^3uL (1.8-7.7); NEUT % 75 % (31-73); PLATELET COUNT 308 x10^3/uL (140-400); RED BLOOD COUNT 4.86 x10^6/uL (3.50-5.40); RED CELL DISTRIBUTION WIDTH 14.7 % (11.5-14.5); WHITE BLOOD COUNT 11.9 x10^3/uL (4.0-11.0)
[2018-03-15 14:28] LABS: BACTERIA,URINE 0 /HPF (0-FEW); BILIRUBIN,URINE NEG (NEG); CLARITY,URINE HAZY; COLOR,URINE YELLOW; GLUCOSE,URINE NEG (NEG); NITRITE,URINE NEG (NEG); SQUAMOUS EPITHELIAL CELL,UR FEW /LPF; UROBILINOGEN,URINE 0.2 mg/dL (0.2 mg/dL); WBC,URINE OCC /HPF (0-4)
[2018-03-15 14:30] LABS: ALBUMIN 3.9 g/dL (3.4-5.0); ALK PHOS 133 U/L (46-116); ALT (SGPT) 18 U/L (14-59); ANION GAP 10 (6-14); AST (SGOT) < 5 U/L (15-37); BLOOD UREA NITROGEN 10 mg/dL (7-20); BUN/CREATININE RATIO 14 (6-20); CARBON DIOXIDE 28 mmol/L (21-32); CHLORIDE 105 mmol/L (98-107); CREATININE 0.7 mg/dL (0.6-1.0); GFR 98.9; GLUCOSE 79 mg/dL (70-99); LIPASE 786 U/L (73-393); POTASSIUM 3.8 mmol/L (3.5-5.1); SODIUM 143 mmol/L (136-145); TOTAL BILIRUBIN 0.2 mg/dL (0.2-1.0); TOTAL PROTEIN 7.7 g/dL (6.4-8.2)
--- NOTE | 2018-03-15 14:48 | RAD ---
CT ABDOMEN PELVIS WO CONTRAST Indication: left side flank pain x 1 day Exposure: One or more of the following individualized dose reduction techniques were utilized for this examination: 1. Automated exposure control 2. Adjustment of the mA and/or kV according to patient size 3. Use of iterative reconstruction technique. Comparison: None are available. Contrast: No intravenous contrast given. No oral contrast per request. Evaluation of solid viscera, bowel and vasculature is compromised by the noncontrast technique. Lower thorax: Lung bases are clear. Liver: Unremarkable Spleen: Unremarkable Pancreas: Unremarkable Adrenals: No evidence of mass. Kidneys: No obvious mass. Urinary tracts: No urolithiasis or hydronephrosis. Gallbladder: Contracted Aorta: Nonaneurysmal Lymph nodes: No significant enlargement GI tract: Moderate retained stool in the colon. Appendix is normal. No evidence of acute colitis. No evidence of obstruction. Reproductive organs:No evidence of mass. Urinary bladder: Unremarkable. Peritoneum: No evidence of pneumoperitoneum. No free fluid. Abdominal wall: Unremarkable Spine: Vertebral body height and alignment are intact. Bones: No destructive process identified. External Soft Tissue: No acute findings. IMPRESSION: No evidence of urinary tract calculus or obstruction. Moderate retained stool in the colon. Electronically signed by: Ortiz Rios MD (03/15/2018 2:44 PM) [facility]
[2018-03-15] MEDS ORDERED: MAGN296S9 PO (15:25)
== END 2018-03-15 15:30 | disposition home or self-care (01) ==
LOC: ER 13:05
DX: K59.00 Constipation, unspecified (principal); R19.7 Diarrhea, unspecified; F14.10 Cocaine abuse, uncomplicated; F12.10 Cannabis abuse, uncomplicated; F17.210 Nicotine dependence, cigarettes, uncomplicated; Z71.6 Tobacco abuse counseling; Z98.890 Other specified postprocedural states
CPT/HCPCS: 36415; 74176; 80053; 80307; 81001; 83690; 85025; 96361; 96374; 96375; 99284; J1885; J2405; J7030

== ENCOUNTER 2018-07-16 17:40 | Emergency (ER) | payer SELFPAY ==
[~2018-07-16] VITALS: Ht 154.9 cm; Wt 70.9 kg
[~2018-07-16 17:40] MED LIST changes: +MAGN296S9 PO
[2018-07-16 17:46] VITALS: BP 154/97
[2018-07-16] MEDS ORDERED: KETOROLAC 15 MG/ML VIAL. IV ONE (18:30)
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
== END 2018-07-16 18:29 | disposition left against medical advice (07) ==
LOC: ER 17:40
DX: M54.2 Cervicalgia (principal); M54.6 Pain in thoracic spine; G89.11 Acute pain due to trauma; F17.210 Nicotine dependence, cigarettes, uncomplicated; Y04.0XXA Assault by unarmed brawl or fight, initial encounter; Y93.89 Activity, other specified; Y92.89 Other specified places as the place of occurrence of the external cause; Y99.8 Other external cause status
CPT/HCPCS: 99281

== ENCOUNTER 2019-03-20 18:24 | Emergency (ER) | payer OTHER ==
[~2019-03-20] VITALS: Ht 154.9 cm; Wt 68.4 kg
[~2019-03-20 18:24] MED LIST changes: +MAGN296S68 PO; -MAGN296S9 PO
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
[2019-03-20] MEDS ORDERED: TETANUS AND DIPHTHERIA TOX/PF 0.5 ML VIAL. VAX IM ONE (19:30)
[2019-03-20] MEDS ORDERED: oxyCODONE/APAP 5/325 1 TAB TABLET PO ONE (19:30)
[2019-03-20] MEDS ORDERED: DIPHTH,PERTUSS(ACELL),TET TOX 0.5 ML DISP.SYRIN. VAX IM ONE ×2 (19:45→20:00)
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
[2019-03-20 21:15] VITALS: BP 118/78
== END 2019-03-20 21:25 | disposition home or self-care (01) ==
LOC: ER 18:24
DX: S83.92XA Sprain of unspecified site of left knee, initial encounter (principal); S60.222A Contusion of left hand, initial encounter; F17.210 Nicotine dependence, cigarettes, uncomplicated; V43.52XA Car driver injured in collision with other type car in traffic accident, initial encounter; Y93.I9 Activity, other involving external motion; Y92.488 Other paved roadways as the place of occurrence of the external cause; Y99.8 Other external cause status
CPT/HCPCS: 71046; 73130; 73564; 90471; 90715; 99284

== ENCOUNTER 2019-04-09 05:29 | Emergency (ER) | payer OTHER ==
[~2019-04-09] VITALS: Ht 154.9 cm; Wt 67.0 kg
[2019-04-09 05:29] VITALS: BP 139/93
[2019-04-09] MEDS ORDERED: NAPR-695 PO (06:27)
[2019-04-09] MEDS ORDERED: ORPH-16 PO (06:27)
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
[2019-04-09] MEDS ORDERED: KETOROLAC 30 MG/ML VIAL. IM ONE (07:00)
[2019-04-09] MEDS ORDERED: ORPHENADRINE CITRATE 60 MG/2 ML VIAL. IM ONE (07:00)
== END 2019-04-09 06:55 | disposition home or self-care (01) ==
LOC: ER 05:29
DX: S46.911A Strain of unspecified muscle, fascia and tendon at shoulder and upper arm level, right arm, initial encounter (principal); F17.210 Nicotine dependence, cigarettes, uncomplicated; V48.9XXA Unspecified car occupant injured in noncollision transport accident in traffic accident, initial encounter; Y93.89 Activity, other specified; Y99.8 Other external cause status; Y92.410 Unspecified street and highway as the place of occurrence of the external cause
CPT/HCPCS: 96372; 99284; J1885; J2360

== ENCOUNTER 2019-09-24 10:41 | Emergency (ER) | payer SELFPAY ==
[~2019-09-24] VITALS: Ht 154.9 cm; Wt 75.3 kg
[~2019-09-24 10:41] MED LIST changes: +NAPR-695 PO; +ORPH-16 PO
[2019-09-24] MEDS ORDERED: LIDOCAINE 1% Multi-Dose 20 ML VIAL. IJ ONE (11:15)
[2019-09-24] MEDS ORDERED: HYDR-3165 PO (11:40)
[2019-09-24] MEDS ORDERED: SULF1TAB24 PO (11:40)
--- NOTE | 2019-09-24 11:41 | PHYS DOC ---
Past History Past Medical History: No Pertinent History Past Surgical History: Smoking: Cigarettes Alcohol Use: None Drug Use: None General Adult EDM: Chief Complaint: SKIN PROBLEM HPI: HPI: Patient is a 29-year-old female with a history of MRSA infection presents with a several day history of progressive swollen tender red area left upper inner thigh. She denies any fever chills or sweats. She states the pain is become intolerable. She is just recently had a termination of her . [] Review of Systems: Review of Systems: Constitutional: Denies fever or chills Eyes: Denies change in visual acuity HENT: Denies nasal congestion or sore throat Respiratory: Denies cough or shortness of breath Cardiovascular: Denies chest pain or edema GI: Denies abdominal pain, nausea, vomiting, bloody stools or diarrhea : Denies dysuria Musculoskeletal: Denies back pain or joint pain Integument: Per HPI Neurologic: Denies headache, focal weakness or sensory changes Endocrine: Denies polyuria or polydipsia Lymphatic: Denies swollen glands Psychiatric: Denies depression or anxiety Heart Score: Risk Factors: Risk Factors: DM, Current or recent (<one month) smoker, HTN, HLP, family history of CAD, obesity. Risk Scores: Score 0 - 3: 2.5% MACE over next 6 weeks - Discharge Home Score 4 - 6: 20.3% MACE over next 6 weeks - Admit for Clinical Observation Score 7 - 10: 72.7% MACE over next 6 weeks - Early Invasive Strategies Current Medications: Current Meds: Current Medications Medications (Trade) Dose Ordered Sig/Marcus Start Time Stop Time Status Last Admin Dose Admin Lidocaine HCl 20 ml 1X ONCE 09/24/19 11:15 09/24/19 11:16 DC Allergies: Allergies: Allergies Coded Allergies Type Severity Reaction Last Updated Verified No Known Drug Allergies 09/24/19 No Physical Exam: PE: Constitutional: Well developed, well nourished, no acute distress, non-toxic appearance. [] HENT: Normocephalic, atraumatic, bilateral external ears normal, oropharynx moist, no oral exudates, nose normal. [] Eyes: PERRLA, EOMI, conjunctiva normal, no discharge. [] Neck: Normal range of motion, no tenderness, supple, no stridor. [] Cardiovascular:Heart rate regular rhythm, no murmur [] Lungs & Thorax: Bilateral breath sounds clear to auscultation [] Abdomen: Bowel sounds normal, soft, no tenderness, no masses, no pulsatile masses. [] Skin: 5 cm x 2 cm laceration in the left upper inner thigh [] Back: No tenderness, no CVA tenderness. [] Extremities: No tenderness, no cyanosis, no clubbing, ROM intact, no edema. [] Neurologic: Alert and oriented X 3, normal motor function, normal sensory function, no focal deficits noted. [] Psychologic: Affect normal, judgement normal, mood normal. [] EKG: EKG: [] Radiology/Procedures: Radiology/Procedures: [] Course & Med Decision Making: Course & Med Decision Making Pertinent Labs and Imaging studies reviewed. (See chart for details) [] Dragon Disclaimer: Dragon Disclaimer: This electronic medical record was generated, in whole or in part, using a voice recognition dictation system. Departure Departure: Impression: Primary Impression: Abscess of left thigh Disposition: HOME/RESIDENCE PRIOR TO ADM Condition: STABLE Referrals: PCP,ANTONIA (PCP) Patient Instructions: Abscess Additional Instructions: Keep wound clean and dry. It is good for the wound to continue to drain. It is extremely important for you to take antibiotics as directed Scripts Hydrocodone Bit/Acetaminophen (NORCO 5-325 TABLET) 1 Each Tablet 1-2 TAB PO Q4-6HRS for PAIN, #20 TAB Prov: EDSON GILLETTE DO 09/24/19 Sulfamethoxazole/Trimethoprim (BACTRIM DS TABLET) 1 Each Tablet 1 TAB PO BID for ABSCESS for 10 Days, #20 TAB 0 Refills Prov: EDSON GILLETTE DO 09/24/19 Justification of Admission: Justification of Admission: Justification of Admission Dx: No Incision and Drainage Indication: Left thigh abscess] N: Procedure: The patient was positioned appropriately and the skin over the incision site was prepped with Betadine. Local anesthesia was 10 cc 1% lidoca ine. An incision was then made over the incision site with an 11 blade and large amount of purulent material was expressed. Loculations were probed with a needle jitney driver. The drainage cavity was then [CAVITY DISP:]. The patients tetanus status tetanus is up-to-date. The patient tolerated the procedure tolerated well. Complications: None EDSON GILLETTE DO Sep 24, 2019 11:41
[2019-09-24 11:51] VITALS: BP 131/98
== END 2019-09-24 11:54 | disposition home or self-care (01) ==
LOC: ER 10:41
DX: S71.112A Laceration without foreign body, left thigh, initial encounter (principal); L02.416 Cutaneous abscess of left lower limb; F17.210 Nicotine dependence, cigarettes, uncomplicated; X58.XXXA Exposure to other specified factors, initial encounter; Y93.89 Activity, other specified; Y92.89 Other specified places as the place of occurrence of the external cause; Y99.8 Other external cause status
CPT/HCPCS: 10060; 99283

== ENCOUNTER 2020-01-17 10:40 | Emergency (ER) | payer SELFPAY ==
[~2020-01-17] VITALS: Ht 154.9 cm; Wt 70.5 kg
--- NOTE | 2020-01-17 11:53 | RAD ---
Examination: Unilateral venous Doppler. Technique: Ultrasound evaluation of the right lower extremity was performed from the groin to the upper calf with garcia scale, spectral and color doppler evaluation. Comparison: None Indication: Leg swelling Findings: There is normal venous flow and compressibility of right common femoral vein, femoral vein, popliteal vein, and visualized proximal calf veins. Impression: No evidence for deep vein thrombosis of right lower extremity from the level of the calf veins to the groins. Electronically signed by: Keo Eli MD (01/17/2020 11:50 AM) [id number]
--- NOTE | 2020-01-17 12:20 | PHYS DOC ---
Past History Past Medical History: No Pertinent History Past Surgical History: Smoking: Cigarettes Alcohol Use: None Drug Use: None Adult General Chief Complaint Chief Complaint: LOWEREXTREMITY INJURY HPI HPI Patient is a 29-year-old female presenting for bilateral lower extremity edema. Patient reports this is an acute on chronic problem. Reports increased lower extremity edema for past 3 months. Reports right is greater in severity in circumference than left over the past 1 week without any known inciting event and/or trauma. Nothing known makes better or worse. She has not taken anything in attempt to alleviate her symptoms. She reports having a typical [place] diet high in sodium. She works on her feet all day in addition, she does not wear compression socks. She does admit history of heroin abuse, has no known cardiac abnormalities. She reports not seeing a primary care physician since she was 16 years old due to lack of insurance. She has no other complaints at this time Review of Systems Review of Systems Fourteen body systems of review of systems have been reviewed. See HPI for pertinent positives and negative responses, other kirk all other systems are negative, non-pertinent or non-contributory Allergies Allergies Allergies Coded Allergies Type Severity Reaction Last Updated Verified No Known Drug Allergies 09/24/19 No Physical Exam Physical Exam Constitutional: Well developed, well nourished, no acute distress, non-toxic appearance. HENT: Normocephalic, atraumatic, bilateral external ears normal, oropharynx moist, no oral exudates, nose normal. Eyes: PERRLA, EOMI, conjunctiva normal, no discharge. Neck: Normal range of motion, no tenderness, supple, no stridor. Cardiovascular: Heart rate regular, sinus rhythm, no murmurs rubs or gallops Lungs & Thorax: Bilateral breath sounds clear to auscultation Abdomen: Bowel sounds normal, soft, no tenderness, no masses, no pulsatile masses. Nonsurgical abdomen, no peritoneal signs Skin: Warm, dry, no erythema, no rash. Back: No tenderness, no CVA tenderness. Extremities: No tenderness, no cyanosis, no clubbing, ROM intact, 1+ pitting edema of right lower extremity with mild increase in total calf circumference versus contralateral leg. Left lower extremity with trace pitting edema present Neurologic: Alert and oriented X 3, grossly normal motor & sensory function, no focal deficits noted. Psychologic: Affect normal, judgement normal, mood normal. Current Patient Data Vital Signs Vital Signs Date Time Temp Pulse Resp B/P (MAP) Pulse Ox O2 Delivery O2 Flow Rate FiO2 01/17/20 11:11 98.3 88 18 129/79 (96) 99 Room Air Lab Results Laboratory Tests Test 01/17/20 11:58 White Blood Count 8.2 x10^3/uL (4.0-11.0) Red Blood Count 4.57 x10^6/uL (3.50-5.40) Hemoglobin 11.0 g/dL (12.0-15.5) Hematocrit 35.5 % (36.0-47.0) Mean Corpuscular Volume 78 fL (79-100) Mean Corpuscular Hemoglobin 24 pg (25-35) Mean Corpuscular Hemoglobin Concent 31 g/dL (31-37) Red Cell Distribution Width 18.8 % (11.5-14.5) Platelet Count 286 x10^3/uL (140-400) Neutrophils (%) (Auto) 66 % (31-73) Lymphocytes (%) (Auto) 25 % (24-48) Monocytes (%) (Auto) 6 % (0-9) Eosinophils (%) (Auto) 3 % (0-3) Basophils (%) (Auto) 0 % (0-3) Neutrophils # (Auto) 5.4 x10^3uL (1.8-7.7) Lymphocytes # (Auto) 2.0 x10^3/uL (1.0-4.8) Monocytes # (Auto) 0.5 x10^3/uL (0.0-1.1) Eosinophils # (Auto) 0.3 x10^3/uL (0.0-0.7) Basophils # (Auto) 0.0 x10^3/uL (0.0-0.2) Sodium Level 140 mmol/L (136-145) Potassium Level 3.5 mmol/L (3.5-5.1) Chloride Level 104 mmol/L (98-107) Carbon Dioxide Level 29 mmol/L (21-32) Anion Gap 7 (6-14) Blood Urea Nitrogen 6 mg/dL (7-20) Creatinine 0.8 mg/dL (0.6-1.0) Estimated GFR (Cockcroft-Gault) 83.7 BUN/Creatinine Ratio 8 (6-20) Glucose Level 88 mg/dL (70-99) Calcium Level 9.1 mg/dL (8.5-10.1) Total Bilirubin 0.1 mg/dL (0.2-1.0) Aspartate Amino Transf (AST/SGOT) 9 U/L (15-37) Alanine Aminotransferase (ALT/SGPT) 27 U/L (14-59) Alkaline Phosphatase 117 U/L (46-116) Total Protein 6.9 g/dL (6.4-8.2) Albumin 3.5 g/dL (3.4-5.0) Albumin/Globulin Ratio 1.0 (1.0-1.7) EKG EKG [] Radiology/Procedures Radiology/Procedures PROCEDURE: VENOUS LOWER EXTREMITY RIGHT Examination: Unilateral venous Doppler. Technique: Ultrasound evaluation of the right lower extremity was performed from the groin to the upper calf with garcia scale, spectral and color doppler evaluation. Comparison: None Indication: Leg swelling Findings: There is normal venous flow and compressibility of right common femoral vein, femoral vein, popliteal vein, and visualized proximal calf veins. Impression: No evidence for deep vein thrombosis of right lower extremity from the level of the calf veins to the groins. Electronically signed by: Keo Eli MD (01/17/2020 11:50 AM) [id number] Heart Score Risk Factors: Risk Factors: DM, Current or recent (<one month) smoker, HTN, HLP, family history of CAD, obesity. Risk Scores: Risk Factors: DM, Current or recent (<one month) smoker, HTN, HLP, family history of CAD, obesity. Course & Med Decision Making Course & Med Decision Making Pertinent Labs and Imaging studies reviewed. (See chart for details) I disclosed patient's presenting symptoms likely not emergent and/or surgical in etiology. I disclose this is likely self-limiting but could be a presentation of more concerning pathology and so outpatient follow-up advised She was given resources regarding local physicians who will be able to assist her regardless of her insurance status I advised her that she was negative for blood clot without any other abnormal findings. I feel she is safe to go home with supportive care instructions such as decreased total sodium consumption and use of compression socks daily Given her concerning history of heroin use, I advised she follow-up in outpatient setting to obtain echocardiogram and other outpatient nonemergent procedures to investigate root cause of patient's presenting symptoms Strict return precautions were discussed with good understanding by patient, all questions and concerns addressed prior to ER departure in stable condition Kim Disclaimer Dragon Disclaimer This electronic medical record was generated, in whole or in part, using a voice recognition dictation system. Departure Departure: Impression: Primary Impression: Swelling of both lower extremities Disposition: 01 DC HOME SELF CARE/HOMELESS Condition: STABLE Referrals: PCP,NO (PCP) Patient Instructions: Edema DIANA DANIELLE DO Jan 17, 2020 12:20
[2020-01-17 12:29] LABS: BASO % 0 % (0-3); EOS # 0.3 x10^3/uL (0.0-0.7); EOS % 3 % (0-3); HEMATOCRIT 35.5 % (36.0-47.0); LYMPH % 25 % (24-48); MEAN CORPUSCULAR HEMOGLOBIN 24 pg (25-35); MEAN CORPUSCULAR HGB CONC 31 g/dL (31-37); MEAN CORPUSCULAR VOLUME 78 fL (79-100); MONO # 0.5 x10^3/uL (0.0-1.1); MONO % 6 % (0-9); NEUT # 5.4 x10^3uL (1.8-7.7); NEUT % 66 % (31-73); PLATELET COUNT 286 x10^3/uL (140-400); RED BLOOD COUNT 4.57 x10^6/uL (3.50-5.40); RED CELL DISTRIBUTION WIDTH 18.8 % (11.5-14.5); WHITE BLOOD COUNT 8.2 x10^3/uL (4.0-11.0)
[2020-01-17 12:34] LABS: CALCIUM 9.1 mg/dL (8.5-10.1); CREATININE 0.8 mg/dL (0.6-1.0); GFR 83.7; POTASSIUM 3.5 mmol/L (3.5-5.1)
[2020-01-17 12:40] LABS: ALBUMIN 3.5 g/dL (3.4-5.0); TOTAL BILIRUBIN 0.1 mg/dL (0.2-1.0); TOTAL PROTEIN 6.9 g/dL (6.4-8.2)
[2020-01-17 12:58] VITALS: BP 131/87
== END 2020-01-17 13:00 | disposition home or self-care (01) ==
LOC: ER 10:40
DX: R60.0 Localized edema (principal); F17.210 Nicotine dependence, cigarettes, uncomplicated
CPT/HCPCS: 36415; 80053; 85025; 93971; 99284

== ENCOUNTER 2020-03-07 12:15 | Emergency (ER) | payer SELFPAY ==
[~2020-03-07] VITALS: Ht 154.9 cm; Wt 70.5 kg
[2020-03-07 12:28] VITALS: BP 124/75
[2020-03-07] MEDS ORDERED: CLIN150C14 PO (13:01)
--- NOTE | 2020-03-07 13:02 | PHYS DOC ---
Past History Past Medical History: No Pertinent History Past Surgical History: Smoking: Cigarettes Alcohol Use: None Drug Use: None General Adult EDM: Chief Complaint: SKIN RASH/ABSCESS HPI: HPI: Patient is a 29-year-old female who presents to the emergency room with complaints of a swollen, red, tender area to her right groin for the last 3 or 4 days that began to drain purulent fluid this morning. Patient reports that the site is very tender to touch. She denies any fever, abdominal pain, nausea, vomiting, itching, or irregular vaginal discharge. She states she became concerned because the area of redness is now spread to her right inner thigh. She currently rates her pain a 2 out of 10 on pain scale unless the area is touched then the pain increases. Review of Systems: Review of Systems: Complete ROS is negative unless otherwise noted in HPI. Allergies: Allergies: Allergies Coded Allergies Type Severity Reaction Last Updated Verified No Known Drug Allergies 09/24/19 No Physical Exam: PE: See Above Constitutional: Well developed, well nourished, no acute distress, non-toxic appearance. [] HENT: Normocephalic, atraumatic, bilateral external ears normal, nose normal. [] Eyes: PERRLA, EOMI, conjunctiva normal, no discharge. [] Neck: Normal range of motion, no stridor. [] Cardiovascular:Heart rate regular rhythm Lungs & Thorax: Respirations even and unlabored, no retractions, no respiratory distress Skin: Warm, dry; area of erythema and warmth noted to the right inguinal area with 3 open areas that are draining purulent fluid, nonfluctuant, erythema extends 8 cm down the right inner thigh consistent with cutaneous abscess with surrounding cellulitis Extremities: No cyanosis, ROM intact, no edema. [] Neurologic: Alert and oriented X 3, no focal deficits noted. [] Psychologic: Affect normal, judgement normal, mood normal. [] Current Patient Data: Vital Signs: Vital Signs Date Time Temp Pulse Resp B/P (MAP) Pulse Ox O2 Delivery O2 Flow Rate FiO2 03/07/20 12:28 98.1 107 18 124/75 (91) 98 EKG: EKG: [] Radiology/Procedures: Radiology/Procedures: [] Heart Score: Risk Factors: Risk Factors: DM, Current or recent (<one month) smoker, HTN, HLP, family history of CAD, obesity. Risk Scores: Score 0 - 3: 2.5% MACE over next 6 weeks - Discharge Home Score 4 - 6: 20.3% MACE over next 6 weeks - Admit for Clinical Observation Score 7 - 10: 72.7% MACE over next 6 weeks - Early Invasive Strategies Course & Med Decision Making: Course & Med Decision Making Pertinent Labs and Imaging studies reviewed. (See chart for details) [] Dragon Disclaimer: Dragon Disclaimer: This electronic medical record was generated, in whole or in part, using a voice recognition dictation system. Departure Departure: Impression: Primary Impression: Abscess or cellulitis of groin Disposition: 01 DC HOME SELF CARE/HOMELESS Condition: STABLE Referrals: PCP,NO (PCP) Patient Instructions: Abscess, Care After, Cellulitis, [id number] Additional Instructions: Fill the prescription(s) and use as directed. You may take tylenol or ibuprofen as needed for pain. You may apply warm, moist packs to the area to help decrease discomfort. Follow up with your primary care doctor or return to the ER in 48 hours to have wound rechecked. Return to the ER sooner if your symptoms worsen or fever develops. Scripts Clindamycin Hcl (CLINDAMYCIN HCL) 150 Mg Capsule 450 MG PO TID for abscess for 7 Days, #63 CAP 0 Refills Prov: JOSE BUCKLEY APRN 03/07/20 JOSE BUCKLEY APRN Mar 07, 2020 13:02
== END 2020-03-07 13:03 | disposition home or self-care (01) ==
LOC: ER 12:15
DX: L03.314 Cellulitis of groin (principal); L02.214 Cutaneous abscess of groin; F17.210 Nicotine dependence, cigarettes, uncomplicated; Z98.890 Other specified postprocedural states
CPT/HCPCS: 99283

== ENCOUNTER 2020-06-02 18:00 | Emergency (ER) | payer OTHER ==
[~2020-06-02] VITALS: Ht 154.9 cm; Wt 70.5 kg
[~2020-06-02 18:00] MED LIST changes: +CLIN150C15 PO; -CLIN300C8 PO; +CLIN300C9 PO
[2020-06-02 18:13] VITALS: BP 138/98
[2020-06-02] MEDS ORDERED: HYDROcodone/APAP 5/325MG 1 TAB TABLET PO ONE (18:30)
[2020-06-02] MEDS ORDERED: IBUPROFEN 600 MG TABLET. PO ONE (18:30)
--- NOTE | 2020-06-02 18:45 | RAD ---
INDICATION: Reason: CRUSH INJURY THUMB / Spl. Instructions: / History: COMPARISON: None. IMPRESSION: Right hand: 3 views obtained. Mildly displaced comminuted fracture of the first distal phalanx. Electronically signed by: Kaveh Raya MD (06/02/2020 6:42 PM) [id number]
[2020-06-02] MEDS ORDERED: BACITRACIN ZINC TOPICAL OINT PACKET. TP ONE (19:30)
[2020-06-02] MEDS ORDERED: IBUP600T16 PO (19:50)
[2020-06-02] MEDS ORDERED: HYDR-2155 PO (19:50)
--- NOTE | 2020-06-02 19:51 | PHYS DOC ---
Past History Past Medical History: No Pertinent History (ROSA MOSES APRN) Past Surgical History: (ROSA MOSES APRN) Smoking: Cigarettes Alcohol Use: None Drug Use: None (ROSA MOSES APRN) Adult General Chief Complaint Chief Complaint: THUMB HPI HPI Patient is a 30-year-old female presents emergency department stating that she slammed her right thumb in the car door at [address] work. Patient states that around 6:30 in the morning she took 800 mg of ibuprofen and 500 mg of Tylenol [id number] which seemed to help with her pain. 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 Patient states throughout the day her pain started coming back, noticed that her thumb was getting bruised. Patient denies any loss of sensation to her thumb however states is very difficult to move. Patient denies any other physical complaints or physical concerns. Patient states her last tetanus shot was less than 5 years ago. Patient reports her last menstrual cycle was March 24, states that she does not have sex, states that she has abnormal periods, states she cannot be . (ROSA MOSES APRN) Review of Systems Review of Systems 14 body systems of review of systems have been reviewed. See HPI for pertinent positives and negative responses, otherwise all other systems are negative, nonpertinent or noncontributory. (ROSA MOSES APRN) Current Medications Current Medications Current Medications Medications (Trade) Dose Ordered Sig/Marcus Start Time Stop Time Status Last Admin Dose Admin Acetaminophen/ Hydrocodone Bitart (Lortab 5/325) 1 tab 1X ONCE 06/02/20 18:30 06/02/20 18:31 DC 06/02/20 18:51 1 TAB Bacitracin (Bacitracin Topical Pkt) 1 pkt 1X ONCE 06/02/20 19:30 06/02/20 19:31 06/02/20 19:29 1 PKT Ibuprofen (Motrin) 600 mg 1X ONCE 06/02/20 18:30 06/02/20 18:31 DC 06/02/20 18:50 600 MG (ROSA MOSES APRN) Allergies Allergies Allergies Coded Allergies Type Severity Reaction Last Updated Verified No Known Drug Allergies 06/02/20 No (ROSA MOSES APRN) Physical Exam Physical Exam Constitutional: Well developed, well nourished, no acute distress, non-toxic appearance. 30-year-old female in no apparent distress. HENT: Normocephalic, atraumatic, bilateral external ears normal, nose normal. Eyes: EOMI, conjunctiva normal, no discharge. Eyes tracking normally. Neck: Normal range of motion. Cardiovascular: No cyanosis appreciated, distal cap refill less than 2 seconds. Lungs & Thorax: No audible adventitious lung sounds appreciated, patient in no respiratory distress. Skin: Warm, dry, no erythema, no rash. See extremity note. Extremities: No tenderness, no cyanosis, no clubbing, ROM intact, no edema. Except for patient's right thumb, bruising to the palmar aspect, abrasion to the ventral aspect just proximal to the nailbed, no laceration appreciated, limited passive range of motion, no crepitus appreciated, distal cap refill less than 2 seconds. No loss of sensation. Mild swelling. Neurologic: Alert and oriented X 3, normal motor function, normal sensory function, no focal deficits noted. Psychologic: Affect normal, judgement normal, mood normal. (ROSA MOSES APRN) Current Patient Data Vital Signs Vital Signs Date Time Temp Pulse Resp B/P (MAP) Pulse Ox O2 Delivery O2 Flow Rate FiO2 06/02/20 18:51 18 98 Room Air 06/02/20 18:13 100.6 91 138/98 (111) (ROSA MOSES APRN) EKG EKG [] (ROSA MOSES APRN) Radiology/Procedures Radiology/Procedures PATIENT: BRENDA HEARD ACCOUNT: [id number] : 1990 LOCATION: ER AGE: 30 SEX: F EXAM STATUS: REG ER ORD. PHYSICIAN: ROSA MOSES APRN REASON: CRUSH INJURY THUMB PROCEDURE: HAND RIGHT 3V INDICATION: Reason: CRUSH INJURY THUMB / Spl. Instructions: / History: COMPARISON: None. IMPRESSION: Right hand: 3 views obtained. Mildly displaced comminuted fracture of the first distal phalanx. Electronically signed by: Carie Ontiveros MD (06/02/2020 6:42 PM) [id number] DICTATED AND SIGNED BY: CARIE ONTIVEROS MD DATE: 06/02/20 184 CC: ROSA MOSES APRN; PCP,NO ~MTH0 0 (ROSA MOSES APRN) Heart Score C/O Chest Pain: No Risk Factors: Risk Factors: DM, Current or recent (<one month) smoker, HTN, HLP, family history of CAD, obesity. Risk Scores: Risk Factors: DM, Current or recent (<one month) smoker, HTN, HLP, family history of CAD, obesity. (ROSA MOSES APRN) Course & Med Decision Making Course & Med Decision Making Pertinent Labs and Imaging studies reviewed. (See chart for details) 30-year-old female, vital signs reviewed, presents emergency department concerning right thumb pain after shutting it in car door this morning. Physical examination concerning for bony injury of right thumb. An x-ray was ordered. Ice pack ordered, p.o. pain medications ordered. Patient's tetanus status is up-to-date, patient states he was about 3 or 4 years ago, bacitracin and wound care per ED nursing staff. X-ray read distal phalanx fracture of the right thumb mildly displaced. This is not an open fracture. Will place in thumb spica splint. We will order pain medication for home, have patient follow-up with orthopedic specialty call for appointment on Friday. Will give instructions for splint care. Nursing staff placed thumb spica splint to right thumb, satisfactory placement, distal cap refill less than 2 seconds. Patient gave verbal understanding of discharge home instructions, splint care, follow-up with orthopedic specialty soon will call for appointment on Friday, PCP follow-up for ongoing concerns, return to ER precautions and concerns, patient had no further questions or concerns and was discharged home without incident. (ROSA MOSES APRN) Course & Med Decision Making I oversaw care of patient while in ER and reviewed case with SENIOR COURTROOM CLERK. I agree to note and plan of care as stated. Electronically signed, Diana Danielle DO (DIANA DANIELLE DO) Kim Disclaimer Dragon Disclaimer This electronic medical record was generated, in whole or in part, using a voice recognition dictation system. (ROSA MOSES APRN) Departure Departure: Impression: Primary Impression: Fracture of thumb, right, closed Disposition: 01 DC HOME SELF CARE/HOMELESS Condition: GOOD Referrals: PCP,NO (PCP) GALINA COLLINS JOHN N MD Patient Instructions: Splint Care, [id number], Thumb Fracture Additional Instructions: X-ray showed a fracture of your right thumb, we have discussed splint care, follow-up with orthopedic surgery please call Friday for an appointment with Dr. Pabon or a orthopedic surgeon of your choice, I have given you CLAUDIA Grace as a follow-up healthcare provider. Please call for an appointment for ongoing treatment of your thumb fracture. Return to the emergency department for worsening symptoms or other concerns. Please use ice packs 30 minutes on 30 minutes off as we discussed, keep elevated. EMERGENCY DEPARTMENT GENERAL DISCHARGE INSTRUCTIONS Thank you for coming to [facility] (ED) today and trusting us with you care. We trust that you had a positivie experience in our Emergency Department. If you wish to speak to the department management, you may call the director at [phone]. YOUR FOLLOW UP INSTRUCTIONS ARE FOLLOWS: 1. Do you have a private Doctor? If you do not have a private doctor, please ask for a resource list of physicians or clinics that may be able to assist you with follow up care. 2. The Emergency Physician has interpreted your x-rays. The X-Ray specialist will also review them. If there is a change in the findings, you will be notified in 48 hours when at all possible. 3. A lab test or culture has been done, your results will be reviewed and you will be notified if you need a change in treatment. ADDITIONAL INSTRUCTIONS AND INFORMATION: 1. Your care today has been supervised by a physician who is specially trained in emergency care. Many problems require more than one evaluation for a complete diagnosis and treatment. We recommend that you schedule your follow up appointment as recommended to ensure complete treatment of you illness or injury. If you are unable to obtain follow up care and continue to have a problem, or if your condition worsens, we recommend that you return to the ED. 2. We are not able to safely determine your condition over the phone nor are we able to give sound medical advice over the phone. For these safety reasons, if you call for medical advice we will ask you to come to the ED for further evaluation. 3. If you have any questions regarding these discharge instructions please call the ED at [phone]. SAFETY INFORMATION: In the interest of safety, wellness, and injury prevention; we encourage you to wear your sealbelt, if you smoke; quite smoking, and we encourage family to use a protec tive helmet for bicycling and other sporting events that present an increased risk for head injury. IF YOUR SYMPTOMS WORSEN OR NEW SYMPTOMS DEVELOP, OR YOU HAVE CONCERNS ABOUT YOUR CONDITION; OR IF YOUR CONDITION WORSENS WHILE YOU ARE WAITING FOR YOUR FOLLOW UP APPOINTMENT; EITHER CONTACT YOUR PRIMARY CARE DOCTOR, THE PHYSICIAN WHOSE NAME AND NUMBER YOU WERE GIVEN, OR RETURN TO THE ED IMMEDIATELY. Scripts Hydrocodone Bit/Acetaminophen (HYDROCODONE-APAP 5-325 ) 1 Each Tablet 1 TAB PO PRN Q6HRS PRN for SEVERE PAIN 7-10, #15 TAB 0 Refills Prov: ROSA MOSES APRN 06/02/20 Ibuprofen (IBUPROFEN) 600 Mg Tablet 600 MG PO TID PRN PRN for PAIN, #30 TAB 0 Refills Prov: ROSA MOSES APRN 06/02/20 Problem Qualifiers Primary Impression: Fracture of thumb, right, closed Encounter type: initial encounter Phalanx: distal Fracture alignment: displaced Qualified Codes: S62.521A - Displaced fracture of distal phalanx of right thumb, initial encounter for closed fracture ROSA MOSES APRN Jun 02, 2020 19:51 DIANA DANIELLE DO Jun 04, 2020 15:26
== END 2020-06-02 19:57 | disposition home or self-care (01) ==
LOC: ER 18:00
DX: S62.521A Displaced fracture of distal phalanx of right thumb, initial encounter for closed fracture (principal); R60.0 Localized edema; M79.641 Pain in right hand; F17.210 Nicotine dependence, cigarettes, uncomplicated; Z98.890 Other specified postprocedural states; X58.XXXA Exposure to other specified factors, initial encounter; Y93.89 Activity, other specified; Y92.89 Other specified places as the place of occurrence of the external cause; Y99.8 Other external cause status
CPT/HCPCS: 29125; 73130; 99284

== ENCOUNTER 2021-01-01 09:52 | Emergency (ER) | payer OTHER ==
[~2021-01-01] VITALS: Ht 154.9 cm; Wt 77.2 kg
[~2021-01-01 09:52] MED LIST changes: +CLIN-95 PO; -CLIN150C15 PO; +CLIN150C16 PO; -CLIN300C9 PO; +HYDR-2155 PO; +IBUP600T16 PO
[2021-01-01] MEDS ORDERED: ONDANSETRON PF 4 MG/2 ML VIAL. IVP ONE (10:15)
[2021-01-01] MEDS ORDERED: LIDO:MAALOX 1:1 20 ML SINGLE DOSE. PO ONE (10:15)
[2021-01-01] MEDS ORDERED: IV NORMAL SALINE 1,000ML 1,000 ML IV SCH (10:15)
--- NOTE | 2021-01-01 10:16 | PHYS DOC ---
Past History Past Medical History: No Pertinent History (DONNA COOK APRN) Past Surgical History: (DONNA COOK APRN) Smoking: Cigarettes Alcohol Use: None Drug Use: None (DONNA COOK APRN) General Adult EDM: Chief Complaint: NAUSEA/VOMITING/DIARRHEA HPI: HPI: Patient is a 30-year-old female who presents to the emergency department for 2- day history of nausea and vomiting. Patient reports that she is vomiting up spit at this point. She is also complaining of burning epigastric pain that she rates 7 out of 10. It does not radiate. Patient denies diarrhea, dysuria, urinary frequency or urgency, blood in her vomit, sick exposures or recent travel. Patient's vital signs are stable and she has no medical history. (DONNA COOK APRN) Review of Systems: Review of Systems: 14 body systems of the review of systems have been reviewed. See HPI for pertinent positive and negative responses, otherwise all other systems are negative, nonpertinent or noncontributory (DONNA COOK APRN) Allergies: Allergies: Allergies Coded Allergies Type Severity Reaction Last Updated Verified No Known Drug Allergies 06/02/20 No (DONNA COOK APRN) Physical Exam: PE: Constitutional: Well developed, well nourished, no acute distress, non-toxic appearance. [] HENT: Normocephalic, atraumatic, bilateral external ears normal, oropharynx moist, no oral exudates, nose normal. [] Eyes: PERRL, EOMI, conjunctiva normal, no discharge. [] Neck: Normal range of motion, no stridor Cardiovascular:Heart rate regular rhythm, no murmur [] Lungs & Thorax: Bilateral breath sounds clear to auscultation [] Abdomen: Bowel sounds normal, soft, epigastric tenderness with palpation, negative rebound tenderness, negative Dean sign, negative Rovsing sign, no masses, no pulsatile masses. [] Skin: Warm, dry, no erythema, no rash. [] Back: No tenderness, no CVA tenderness. [] Extremities: No tenderness, no cyanosis, no clubbing, ROM intact, no edema. [] Neurologic: Alert and oriented X 3, normal motor function, normal sensory f unction, no focal deficits noted. [] Psychologic: Affect normal, judgement normal, mood normal. [] (DONNA COOK APRN) Current Patient Data: Labs: Laboratory Tests Test 01/01/21 10:18 01/01/21 10:25 01/01/21 10:45 White Blood Count 11.9 x10^3/uL Red Blood Count 5.44 x10^6/uL Hemoglobin 14.5 g/dL Hematocrit 44.6 % Mean Corpuscular Volume 82 fL Mean Corpuscular Hemoglobin 27 pg Mean Corpuscular Hemoglobin Concent 32 g/dL Red Cell Distribution Width 16.2 % Platelet Count 318 x10^3/uL Neutrophils (%) (Auto) 75 % Lymphocytes (%) (Auto) 16 % Monocytes (%) (Auto) 6 % Eosinophils (%) (Auto) 2 % Basophils (%) (Auto) 0 % Neutrophils # (Auto) 8.9 x10^3uL Lymphocytes # (Auto) 1.9 x10^3/uL Monocytes # (Auto) 0.8 x10^3/uL Eosinophils # (Auto) 0.2 x10^3/uL Basophils # (Auto) 0.0 x10^3/uL Sodium Level 143 mmol/L Potassium Level 3.7 mmol/L Chloride Level 104 mmol/L Carbon Dioxide Level 29 mmol/L Anion Gap 10 Blood Urea Nitrogen 16 mg/dL Creatinine 0.8 mg/dL Estimated GFR (Cockcroft-Gault) 83.1 BUN/Creatinine Ratio 20 Glucose Level 100 mg/dL Calcium Level 9.5 mg/dL Total Bilirubin 0.2 mg/dL Aspartate Amino Transf (AST/SGOT) 7 U/L Alanine Aminotransferase (ALT/SGPT) 20 U/L Alkaline Phosphatase 145 U/L Total Protein 8.7 g/dL Albumin 4.3 g/dL Albumin/Globulin Ratio 1.0 Lipase 159 U/L Urine Collection Type Unknown Urine Color Yellow Urine Clarity Cloudy Urine pH 5.5 Urine Specific Beau[place] >=1.030 Urine Protein Neg Urine Glucose (UA) Neg mg/dL Urine Ketones (Stick) Neg mg/dL Urine Blood Neg Urine Nitrite Neg Urine Bilirubin Neg Urine Urobilinogen Dipstick 0.2 mg/dL Urine Leukocyte Esterase Trace Urine RBC 1-2 /HPF Urine WBC 1-4 /HPF Urine Squamous Epithelial Cells Many /LPF Urine Bacteria Few /HPF Bedside Urine HCG, Qualitative hcg negative Current Medications Medications (Trade) Dose Ordered Sig/Marcus Route PRN Reason Start Time Stop Time Status Last Admin Dose Admin Sodium Chloride 1,000 ml @ 1,000 mls/hr Q1H IV 01/01/21 10:15 01/01/21 11:14 DC 01/01/21 10:21 Ondansetron HCl (Zofran) 4 mg 1X ONCE IVP 01/01/21 10:15 01/01/21 10:17 DC 01/01/21 10:21 Multi-Ingredient Mouthwash/Gargle (Gi Cocktail) 20 ml 1X ONCE PO 01/01/21 10:15 01/01/21 10:17 DC 01/01/21 10:55 Iohexol (Omnipaque 300 Mg/ml) 75 ml 1X ONCE IV 01/01/21 10:30 01/01/21 10:31 DC 01/01/21 10:42 (DONNA COOK APRN) EKG: EKG: [] (DONNA COOK APRN) Radiology/Procedures: Radiology/Procedures: []PROCEDURE: CT ABD PELV W/ IV CONTRST ONLY Exam Date: 01/01/2021 10:[address] ABDOMEN+PELVIS W Indication: Reason: EPIGASTRIC PAIN, N/V, CONSTIPATION - OMNI 300 75ML IV / Spl. Instructions: / History: . TECHNIQUE: CT examination of the abdomen and pelvis was performed following the administration of nonionic intravenous contrast. One or more of the following dose reduction techniques were utilized: *Automated exposure control (AEC) *Adjustment of mA and/or kV according to patient size *Use of iterative reconstruction technique *CT scan done according to ALARA, or ALARA/IMAGE GENTLY COMPARISON: March 15, 2018 FINDINGS: The visualized lung bases are clear. The liver, gallbladder, spleen, pancreas, adrenal glands and kidneys are normal. Urinary bladder is normal in appearance. There is no bowel obstruction or inflammation. The appendix is normal. Minimal atherosclerotic calcifications are seen. No lymphadenopathy or ascites is seen. Osseous structures are intact. IMPRESSION: No evidence of acute intra-abdominal pathology. Electronically signed by: Vick Chopra MD (01/01/2021 11:11 AM) [id number] DICTATED AND SIGNED BY: VICK CHOPRA MD DATE: 01/01/21 1057 CC: DONNA COOK APRN; PCP,NO ~MTH0 0 (DONNA COOK APRN) Heart Score: C/O Chest Pain: N/A Risk Factors: Risk Factors: DM, Current or recent (<one month) smoker, HTN, HLP, family history of CAD, obesity. Risk Scores: Score 0 - 3: 2.5% MACE over next 6 weeks - Discharge Home Score 4 - 6: 20.3% MACE over next 6 weeks - Admit for Clinical Observation Score 7 - 10: 72.7% MACE over next 6 weeks - Early Invasive Strategies (DONNA COOK APRN) Course & Med Decision Making: Course & Med Decision Making Pertinent Labs and Imaging studies reviewed. (See chart for details) [] Patient presents to the emergency department for nausea, vomiting and epigastric burning pain. Her work-up in the ER consisted of blood work, urinalysis, Covid testing, CT imaging of abdomen. She was treated with IV fluids, nausea medication and a GI cocktail. Patient reports that she feels much better following treatment in the ER. She will be notified of her Covid test and admit them available in approximately 2 days. Patient advised to self isolate until she receives these results. Patient was noted to have mild leukocytosis with a white blood cell count of 11.9. This may be due to her nausea and vomiting. Patient's remaining lab work is unremarkable. Her CT scan of her abdomen and pelvis showed no acute findings. Patient is noted to have a mild UTI on her urinalysis with trace leukocytes, 1-4 white blood cells and few bacteria. Patient will be treated with an antibiotic. Patient will also be discharged home with nausea medication. Advised to increase her fluids. Advised to follow-up with her primary care provider. I discussed with patient all findings and diagnostic testing as well as the need to follow-up with PCP for further evaluation and treatment or return to the ER if any new or worsening symptoms. Strict return precautions were also discussed at length. Patient voiced understanding and agreement with the plan. Patient is hemodynamically stable at the time of disposition. (DONNA COOK APRN) Course & Med Decision Making I was the Attending physician on the above date of service of this patient. This patient was evaluated, examined, treated, and dispositioned from the emergency department by the mid-level practitioner. Although I was working at the time , no assistance was requested. Electronically signed, Diana Danielle DO (DIANA DANIELLE DO) Kim Disclaimer: Kim Disclaimer: This electronic medical record was generated, in whole or in part, using a voice recognition dictation system. (DONNA COOK APRN) Departure Departure: Impression: Primary Impression: Nausea & vomiting Qualified Codes: R11.2 - Nausea with vomiting, unspecified Additional Impression: Urinary tract infection Qualified Codes: N30.00 - Acute cystitis without hematuria Disposition: HOME / SELF CARE / HOMELESS Condition: GOOD Referrals: PCP,NO (PCP) Patient Instructions: Nausea and Vomiting, Urinary Tract Infection Additional Instructions: You were seen in the emergency department today for nausea, vomiting and abdominal pain. As we discussed, your work-up was mostly unremarkable although you were noted to have a mild urinary tract infection which will be treated with an antibiotic. Please start and finish this completely. You are also being discharged home nausea medication that you can take as needed. In the emergency department, you were tested for COVID-19. You these results will be available in approximately 2 days, please self isolate until you receive these results. Increase your fluids. I would stick to a clear liquid diet for the rest of today which includes water, Gatorade's, Jell-O, soup. Tomorrow I would stick to a bland diet which consists of bananas, rice, applesauce, toast, crackers. Follow-up with your primary care provider tomorrow regarding your ER visit. Return to the emergency department if you develop severe abdominal pain or back pain, intractable nausea or vomiting, high fevers refractory to treatment, blood in your stools or vomit or any new or worsening concerns. EMERGENCY DEPARTMENT GENERAL DISCHARGE INSTRUCTIONS Thank you for coming to [facility] ([facility]) today and trusting us with you care. We trust that you had a positivie experience in our Emergency Department. If you wish to speak to the department management, you may call the director at [phone]. YOUR FOLLOW UP INSTRUCTIONS ARE FOLLOWS: 1. Do you have a private Doctor? If you do not have a private doctor, please ask for a resource list of physicians or clinics that may be able to assist you with follow up care. 2. The Emergency Physician has interpreted your x-rays. The X-Ray specialist will also review them. If there is a change in the findings, you will be notified in 48 hours when at all possible. 3. A lab test or culture has been done, your results will be reviewed and you will be notified if you need a change in treatment. ADDITIONAL INSTRUCTIONS AND INFORMATION: 1. Your care today has been supervised by a physician who is specially trained in emergency care. Many problems require more than one evaluation for a complete diagnosis and treatment. We recommend that you schedule your follow up appointment as recommended to ensure complete treatment of you illness or injury. If you are unable to obtain follow up care and continue to have a problem, or if your condition worsens, we recommend that you return to the ED. 2. We are not able to safely determine your condition over the phone nor are we able to give sound medical advice over the phone. For these safety reasons, if you call for medical advice we will ask you to come to the ED for further evaluation. 3. If you have any questions regarding these discharge instructions please call the ED at [phone]. SAFETY INFORMATION: In the interest of safety, wellness, and injury prevention; we encourage you to wear your sealbelt, if you smoke; quite smoking, and we encourage family to use a protective helmet for bicycling and other sporting events that present an increased risk for head injury. IF YOUR SYMPTOMS WORSEN OR NEW SYMPTOMS DEVELOP, OR YOU HAVE CONCERNS ABOUT YOUR CONDITION; OR IF YOUR CONDITION WORSENS WHILE YOU ARE WAITING FOR YOUR FOLLOW UP APPOINTMENT; EITHER CONTACT YOUR PRIMARY CARE DOCTOR, THE PHYSICIAN WHOSE NAME AND NUMBER YOU WERE GIVEN, OR RETURN TO THE ED IMMEDIATELY. Scripts Cephalexin (CEPHALEXIN) 500 Mg Tablet 1 TAB PO BID for uti for 7 Days, #14 TAB 0 Refills Prov: DONNA COOK APRN 01/01/21 Ondansetron (ONDANSETRON ODT) 4 Mg Tab.rapdis 1 TAB PO PRN Q6-8HRS for nausea for 4 Days, #16 TAB 0 Refills Prov: DONNA COOK APRN 01/01/21 DONNA COOK APRN Jan 01, 2021 10:16 DIANA DANIELLE DO Jan 01, 2021 17:18
[2021-01-01] MEDS ORDERED: IOHEXOL 300 MG/ML 75 ML VIAL. IV ONE (10:30)
[2021-01-01 10:38] LABS: BASO % 0 % (0-3); EOS # 0.2 x10^3/uL (0.0-0.7); EOS % 2 % (0-3); HEMATOCRIT 44.6 % (36.0-47.0); HEMOGLOBIN 14.5 g/dL (12.0-15.5); LYMPH # 1.9 x10^3/uL (1.0-4.8); LYMPH % 16 % (24-48); MEAN CORPUSCULAR HEMOGLOBIN 27 pg (25-35); MEAN CORPUSCULAR HGB CONC 32 g/dL (31-37); MEAN CORPUSCULAR VOLUME 82 fL (79-100); MONO # 0.8 x10^3/uL (0.0-1.1); MONO % 6 % (0-9); NEUT # 8.9 x10^3uL (1.8-7.7); NEUT % 75 % (31-73); PLATELET COUNT 318 x10^3/uL (140-400); RED BLOOD COUNT 5.44 x10^6/uL (3.50-5.40); RED CELL DISTRIBUTION WIDTH 16.2 % (11.5-14.5); WHITE BLOOD COUNT 11.9 x10^3/uL (4.0-11.0)
[2021-01-01 10:48] LABS: CALCIUM 9.5 mg/dL (8.5-10.1); CREATININE 0.8 mg/dL (0.6-1.0); GFR 83.1; POTASSIUM 3.7 mmol/L (3.5-5.1)
[2021-01-01 10:54] LABS: ALBUMIN 4.3 g/dL (3.4-5.0); TOTAL BILIRUBIN 0.2 mg/dL (0.2-1.0); TOTAL PROTEIN 8.7 g/dL (6.4-8.2)
[2021-01-01 11:02] LABS: BILIRUBIN,URINE NEG (NEG); CLARITY,URINE CLOUDY; COLOR,URINE YELLOW; GLUCOSE,URINE NEG (NEG); NITRITE,URINE NEG (NEG); UROBILINOGEN,URINE 0.2 mg/dL (0.2 mg/dL)
[2021-01-01 11:03] VITALS: BP 131/82
[2021-01-01 11:03] LABS: BACTERIA,URINE FEW /HPF (0-FEW); SQUAMOUS EPITHELIAL CELL,UR MANY /LPF
--- NOTE | 2021-01-01 11:14 | RAD ---
Exam Date: 01/01/2021 10:[address] ABDOMEN+PELVIS W Indication: Reason: EPIGASTRIC PAIN, N/V, CONSTIPATION - OMNI 300 75ML IV / Spl. Instructions: / His tory: . TECHNIQUE: CT examination of the abdomen and pelvis was performed following the administration of no nionic intravenous contrast. One or more of the following dose reduction techniques were utilized: *Automated exposure control (AEC) *Adjustment of mA and/or kV according to patient size *Use of iterative reconstruction technique *CT scan done according to ALARA, or ALARA/IMAGE GENTLY COMPARISON: March 15, 2018 FINDINGS: The visualized lung bases are clear. The liver, gallbladder, spleen, pancreas, adrenal glands and kidneys are normal. Urinary bladder is normal in appearance. There is no bowel obstruction or inflammation. The appendix is normal. Minimal atherosclerotic calcifications are seen. No lymphadenopathy or ascites is seen. Osseous structures are intact. IMPRESSION: No evidence of acute intra-abdominal pathology. Electronically signed by: Desmond Chopra MD (01/01/2021 11:11 AM) [id number]
[2021-01-01] MEDS ORDERED: ONDA4TAB12 PO (11:23)
[2021-01-01] MEDS ORDERED: CEPH500T PO (11:23)
== END 2021-01-01 11:29 | disposition home or self-care (01) ==
LOC: ER 09:52
DX: N30.00 Acute cystitis without hematuria (principal); R11.2 Nausea with vomiting, unspecified; F17.210 Nicotine dependence, cigarettes, uncomplicated; Z20.822 Contact with and (suspected) exposure to COVID-19; Z98.890 Other specified postprocedural states
CPT/HCPCS: 74177; 80053; 81001; 81025; 83690; 85025; 87077; 87086; 87186; 96361; 96374; 99285; C9803; J2405; J7030; Q9967; U0003

== ENCOUNTER 2021-03-07 15:33 | Emergency (ER) | payer OTHER ==
[~2021-03-07 15:33] MED LIST changes: +CEPH500T PO; +ONDA4TAB12 PO
== END 2021-03-07 15:45 | disposition left against medical advice (07) ==
LOC: ER 15:33
DX: R10.30 Lower abdominal pain, unspecified (principal); Z53.21 Procedure and treatment not carried out due to patient leaving prior to being seen by health care provider

== ENCOUNTER 2021-07-05 18:53 | Emergency (ER) | payer OTHER ==
[~2021-07-05] VITALS: Ht 154.9 cm; Wt 77.2 kg
[2021-07-05] MEDS ORDERED: IBUPROFEN 600 MG TABLET. PO ONE (19:15)
[2021-07-05 19:34] LABS: INFLUENZA B PATIENT NEGATIVE (NEGATIVE)
[2021-07-05 19:36] LABS: INFLUENZA A PATIENT POSITIVE (NEGATIVE)
[2021-07-05] MEDS ORDERED: OSEL75CA PO (20:12)
--- NOTE | 2021-07-05 20:12 | PHYS DOC ---
Past History Past Medical History: No Pertinent History Past Surgical History: Smoking: Cigarettes Alcohol Use: None Drug Use: None General Adult EDM: Chief Complaint: FLU SYMPTOM HPI: HPI: Patient is a 31-year-old female who presents with body aches, fever, congestion. Patient states that she was around her aunt who tested positive for influenza. Patient states that she woke up this morning feeling bad. Denies nausea vom iting diarrhea. Patient took Tylenol this morning for fever. Patient temp on arrival was 101. Denies medical history. Review of Systems: Review of Systems: ROS At least 10 ROS systems have been reviewed and are negative except as documented in the HPI. General: Negative except as outlined in HPI above. Skin: Negative except as outlined in HPI above. HEENT: Negative except as outlined in HPI above. Neck: Negative except as outlined in HPI above. Respiratory: Negative except as outlined in HPI above.. Cardiovascular: Negative except as outlined in HPI above. Abdomen: Negative except as outlined in HPI above. : Negative except as outlined in HPI above. Back/MSK: Negative except as outlined in HPI above. Neuro: Negative except as outlined in HPI above. Psych: Negative except as outlined in HPI above. Current Medications: Current Meds: Current Medications Medications (Trade) Dose Ordered Sig/Marcus Start Time Stop Time Status Last Admin Dose Admin Fentanyl Citrate (Fentanyl 2ml Vial) 50 mcg 1X ONCE 07/05/21 19:30 07/05/21 19:31 DC Ibuprofen (Motrin) 600 mg 1X ONCE 07/05/21 19:15 07/05/21 19:17 DC Allergies: Allergies: Allergies Coded Allergies Type Severity Reaction Last Updated Verified No Known Drug Allergies 06/02/20 No Physical Exam: PE: Constitutional: Well developed, well nourished, no acute distress, non-toxic appearance. [] HENT: Normocephalic, atraumatic, bilateral external ears normal, oropharynx moist, no oral exudates, nose normal. [] Eyes: PERRLA, EOMI, conjunctiva normal, no discharge. [] Neck: Normal range of motion, no tenderness, supple, no stridor. [] Cardiovascular:Heart rate regular rhythm, no murmur [] Lungs & Thorax: Bilateral breath sounds clear to auscultation [] Abdomen: Bowel sounds normal, soft, no tenderness, no masses, no pulsatile masses. [] Skin: Warm, dry, no erythema, no rash. [] Back: No tenderness, no CVA tenderness. [] Extremities: No tenderness, no cyanosis, no clubbing, ROM intact, no edema. [] Neurologic: Alert and oriented X 3, normal motor function, normal sensory function, no focal deficits noted. [] Psychologic: Affect normal, judgement normal, mood normal. [] Current Patient Data: Labs: Laboratory Tests Test 07/05/21 19:13 Influenza Type A (Rapid) Positive (NEGATIVE) *A Influenza Type B (Rapid) Negative (NEGATIVE) Vital Signs: Vital Signs Date Time Temp Pulse Resp B/P (MAP) Pulse Ox O2 Delivery O2 Flow Rate FiO2 07/05/21 19:07 101.8 110 16 151/86 (107) 99 Room Air EKG: EKG: [] Radiology/Procedures: Radiology/Procedures: [] Heart Score: C/O Chest Pain: No Risk Factors: Risk Factors: DM, Current or recent (<one month) smoker, HTN, HLP, family history of CAD, obesity. Risk Scores: Score 0 - 3: 2.5% MACE over next 6 weeks - Discharge Home Score 4 - 6: 20.3% MACE over next 6 weeks - Admit for Clinical Observation Score 7 - 10: 72.7% MACE over next 6 weeks - Early Invasive Strategies Course & Med Decision Making: Course & Med Decision Making Pertinent Labs and Imaging studies reviewed. (See chart for details) [] 31 at home presents with body aches, fever, congestion. Patient was exposed to influenza by her aunt. Patient was febrile at 101 on arrival. Patient given Motrin. Patient was tested for influenza and tested positive for influenza A. Tamiflu was sent to pharmacy. Advised patient to take ibuprofen and Tylenol for pain, fever. Chloraseptic spray for sore throat. Plenty of fluids. Patient's appreciative and okay with discharge plan. Kim Disclaimer: Kim Disclaimer: This electronic medical record was generated, in whole or in part, using a voice recognition dictation system. Departure Departure: Impression: Primary Impression: Influenza A Disposition: HOME / SELF CARE / HOMELESS Condition: STABLE Referrals: PCP,NO (PCP) Patient Instructions: Influenza, Adult Additional Instructions: You were seen emergency room for fever, body aches. You tested positive for influenza. I am sending in Tamiflu. Take ibuprofen and Tylenol for body aches and fever you were given Motrin while in the ER. Drink plenty of fluids. Return emergency room with worsening symptoms or concerns. EMERGENCY DEPARTMENT GENERAL DISCHARGE INSTRUCTIONS Thank you for coming to [facility] ([facility]) today and trusting us with you care. We trust that you had a positivie experience in our Emergency Department. If you wish to speak to the department management, you may call the director at [phone]. YOUR FOLLOW UP INSTRUCTIONS ARE FOLLOWS: 1. Do you have a private Doctor? If you do not have a private doctor, please ask for a resource list of physicians or clinics that may be able to assist you with follow up care. 2. The Emergency Physician has interpreted your x-rays. The X-Ray specialist will also review them. If there is a change in the findings, you will be notified in 48 hours when at all possible. 3. A lab test or culture has been done, your results will be reviewed and you will be notified if you need a change in treatment. ADDITIONAL INSTRUCTIONS AND INFORMATION: 1. Your care today has been supervised by a physician who is specially trained in emergency care. Many problems require more than one evaluation for a complete diagnosis and treatment. We recommend that you schedule your follow up appointment as recommended to ensure complete treatment of you illness or injury. If you are unable to obtain follow up care and continue to have a problem, or if your condition worsens, we recommend that you return to the ED. 2. We are not able to safely determine your condition over the phone nor are we able to give sound medical advice over the phone. For these safety reasons, if you call for medical advice we will ask you to come to the ED for further evaluation. 3. If you have any questions regarding these discharge instructions please call the ED at [phone]. SAFETY INFORMATION: In the interest of safety, wellness, and injury prevention; we encourage you to wear your sealbelt, if you smoke; quite smoking, and we encourage family to use a protective helmet for bicycling and other sporting events that present an increased risk for head injury. IF YOUR SYMPTOMS WORSEN OR NEW SYMPTOMS DEVELOP, OR YOU HAVE CONCERNS ABOUT YOUR CONDITION; OR IF YOUR CONDITION WORSENS WHILE YOU ARE WAITING FOR YOUR FOLLOW UP APPOINTMENT; EITHER CONTACT YOUR PRIMARY CARE DOCTOR, THE PHYSICIAN WHOSE NAME AND NUMBER YOU WERE GIVEN, OR RETURN TO THE ED IMMEDIATELY. Scripts Oseltamivir Phosphate (TAMIFLU) 75 Mg Capsule 75 MG PO BID for influenza for 5 Days, #10 CAP Prov: TAMAR MARLOW APRN 07/05/21 TAMAR MARLOW APRN Jul 05, 2021 20:12
[2021-07-05 20:19] VITALS: BP 148/86
== END 2021-07-05 20:20 | disposition home or self-care (01) ==
LOC: ER 18:53
DX: J10.1 Influenza due to other identified influenza virus with other respiratory manifestations (principal); F17.210 Nicotine dependence, cigarettes, uncomplicated; Z98.890 Other specified postprocedural states
CPT/HCPCS: 87428; 87804; 99283